=== PATIENT | male | born 1950 | race Caucasian/White ===

== ENCOUNTER 2021-12-08 10:47 | Emergency (ER) | payer OTHER, MEDICAID ==
[~2021-12-08] VITALS: Ht 180.3 cm; Wt 46.8 kg
[2021-12-08] MEDS ORDERED: LIDO1PAD13 TOP (12:30)
[2021-12-08] MEDS ORDERED: PANT40TA29 PO (12:30)
[2021-12-08] MEDS ORDERED: MAGN400T2 PO (12:30)
[2021-12-08] MEDS ORDERED: TRAZ-257 PO (12:30)
[2021-12-08] MEDS ORDERED: ALBU2TA PO (12:30)
[2021-12-08] MEDS ORDERED: RANO500T7 PO (12:30)
[2021-12-08] MEDS ORDERED: AMLO1TAB25 PO (12:30)
[2021-12-08] MEDS ORDERED: ATOR40TA75 PO (12:30)
[2021-12-08 12:33] VITALS: BP 171/107
== END 2021-12-08 12:35 | disposition home or self-care (01) ==
LOC: EDBD 10:47 → M ED 10:47
DX: T18.5XXA Foreign body in anus and rectum, initial encounter (principal); J44.9 Chronic obstructive pulmonary disease, unspecified; Z87.891 Personal history of nicotine dependence; Z79.899 Other long term (current) drug therapy

== ENCOUNTER 2022-02-13 16:39 | Inpatient (IN) | payer OTHER, MEDICAID ==
[~2022-02-13] VITALS: Ht 177.8 cm; Wt 43.2 kg
[~2022-02-13 16:39] MED LIST: ALBU2TA PO; AMLO1TAB25 PO; ATOR40TA75 PO; LIDO1PAD13 TOP; MAGN400T2 PO; PANT40TA29 PO; RANO500T7 PO; TRAZ-257 PO
[2022-02-13 19:44] LABS: BASO % 0.2 % (0.0-1.0); EOS % 0.3 % (0.0-3.0); HEMATOCRIT 40.6 % (42.0-52.0); HEMOGLOBIN 13.6 g/dl (13.5-17.5); LYMPH # 0.9 10^3/uL (1.5-5.0); LYMPH % 13.9 % (24.0-44.0); MEAN CORPUSCULAR HGB CONC 33.5 g/dl (32.0-36.5); MEAN CORPUSCULAR VOLUME 83.5 fl (80.0-96.0); MONO # 0.8 10^3/uL (0.0-0.8); MONO % 13.1 % (2.0-8.0); NEUTROPHILS # 4.6 10^3/uL (1.5-8.5); NEUTROPHILS % 72.2 % (36.0-66.0); PLATELET COUNT, AUTOMATED 226 10^3/uL (150-450); RED BLOOD COUNT 4.86 10^6/uL (4.30-6.10); WHITE BLOOD COUNT 6.3 10^3/uL (4.0-10.0)
[2022-02-13 20:04] LABS: AMPHETAMINES LEVEL URINE NEGATIVE (NEGATIVE); BARBITURATES URINE NEGATIVE (NEGATIVE); BENZODIAZEPINES URINE NEGATIVE (NEGATIVE); CANNABINOIDS URINE NEGATIVE (NEGATIVE); COCAINE METABOLITE URINE NEGATIVE (NEGATIVE); METHADONE URINE NEGATIVE (NEGATIVE); OPIATES URINE NEGATIVE (NEGATIVE); PHENCYCLIDINE URINE NEGATIVE (NEGATIVE)
[2022-02-13 20:15] LABS: MB/CK RELATIVE INDEX 1.49 (< OR =4)
[2022-02-13 20:16] LABS: ALBUMIN 3.4 GM/DL (3.2-5.2); BILIRUBIN,DIRECT 0.2 MG/DL (0.0-0.2); BILIRUBIN,TOTAL 0.7 MG/DL (0.2-1.0); CALCIUM LEVEL 9.1 MG/DL (8.8-10.2); CREATININE FOR GFR 1.5 MG/DL (0.70-1.30); GLOMERULAR FILTRATION RATE 49.1 (>42); POTASSIUM SERUM 3.9 MEQ/L (3.5-5.1); THYROID STIMULATING HORMONE 1.54 uIU/ML (0.358-3.740)
[2022-02-13] MEDS ORDERED: NS 500 ML IV ONE (21:40)
[2022-02-13] MEDS ORDERED: cefTRIAXone SOD 1 GM in D5W MINI-BAG PLUS 50 ML IV ONE (21:40)
[2022-02-13] MEDS ORDERED: hydrALAZINE 20MG/ML 1ML VIAL (J0360 PER 20MG) IV STA (22:16)
[2022-02-13 22:22] LABS: RSV AMPLIFICATION NEGATIVE (NEGATIVE)
[2022-02-13] MEDS ORDERED: NS 1,000 ML IV SCH (23:10)
[2022-02-13] MEDS ORDERED: LEVALBUTEROL 1.25 MG/0.5 ML CONCENTRATE NEB NEB PRN (23:15)
[2022-02-13] MEDS ORDERED: PROAAER10 INH (23:33)
[2022-02-13] MEDS ORDERED: COMMENTS (23:33)
[2022-02-13] MEDS ORDERED: HOME MED LIST COMPLETE! XX SCH (23:35)
[2022-02-14] MEDS ORDERED: ALBUTEROL 90 MCG/ACT 8GM HFA INHALER INH PRN (00:55)
[2022-02-14 01:10] VITALS: BP 169/109
[2022-02-14] MEDS: traZODone 100 MG TAB PO SCH ×2 (02:50→21:55)
[2022-02-14] MEDS: RANOLAZINE 500 MG ER TAB PO SCH ×3 (02:52→21:55)
[2022-02-14 05:16] VITALS: BP 135/84
[2022-02-14 05:56] LABS: HEMATOCRIT 37.1 % (42.0-52.0); HEMOGLOBIN 12.5 g/dl (13.5-17.5); MEAN CORPUSCULAR HEMOGLOBIN 27.7 pg (27.0-33.0); MEAN CORPUSCULAR HGB CONC 33.7 g/dl (32.0-36.5); MEAN CORPUSCULAR VOLUME 82.3 fl (80.0-96.0); PLATELET COUNT, AUTOMATED 206 10^3/uL (150-450); RED BLOOD COUNT 4.51 10^6/uL (4.30-6.10); WHITE BLOOD COUNT 6.4 10^3/uL (4.0-10.0)
[2022-02-14 06:23] LABS: CHOLESTEROL RISK RATIO 2.416 (<5); PROTHROMBIN TIME 13.6 SECONDS (12.7-14.5)
[2022-02-14 06:24] LABS: PARTIAL THROMBOPLASTIN TIME 30.9 SECONDS (25.9-37.0)
[2022-02-14 06:30] LABS: BLOOD UREA NITROGEN 53 MG/DL (7-18); CALCIUM LEVEL 8.4 MG/DL (8.8-10.2); CARBON DIOXIDE LEVEL 24 MEQ/L (21-32); CHLORIDE LEVEL 107 MEQ/L (98-107); CREATININE FOR GFR 1.05 MG/DL (0.70-1.30); GLOMERULAR FILTRATION RATE > 60.0 (>42); GLUCOSE, FASTING 122 MG/DL (70-100); MAGNESIUM LEVEL 2.5 MG/DL (1.8-2.4); POTASSIUM SERUM 3.1 MEQ/L (3.5-5.1); SODIUM LEVEL 140 MEQ/L (136-145)
[2022-02-14] MEDS ORDERED: POTASSIUM CHLORIDE 10MEQ SR TABLET PO ONE (08:00)
[2022-02-14] MEDS: ASPIRIN 81 MG CHEW TABLET PO SCH (08:30)
[2022-02-14] MEDS: PANTOPRAZOLE 40MG TAB (PROTONIX) PO SCH (08:31)
[2022-02-14] MEDS: LACTOBACILLUS ACIDOPHILUS CAP (BACID) PO SCH (08:33)
[2022-02-14] MEDS: ENOXAPARIN 30MG/0.3ML SYRINGE (J1650 PER 10MG) SC SCH (08:35)
[2022-02-14] MEDS ORDERED: RANOLAZINE 500 MG ER TAB PO SCH (09:00)
[2022-02-14 14:00] VITALS: BP 126/84
[2022-02-14 20:40] VITALS: BP 131/85
[2022-02-14] MEDS ORDERED: traZODone 100 MG TAB PO SCH (21:00)
[2022-02-14] MEDS: ATORVASTATIN 20 MG TAB PO SCH (21:55)
[2022-02-14] MEDS: cefTRIAXone SOD 1 GM in D5W MINI-BAG PLUS 50 ML IV SCH (21:56)
[2022-02-15 04:00] VITALS: BP 148/103
[2022-02-15 06:27] VITALS: BP 139/94
[2022-02-15 06:55] LABS: HEMATOCRIT 35.6 % (42.0-52.0); MEAN CORPUSCULAR HEMOGLOBIN 28.7 pg (27.0-33.0); MEAN CORPUSCULAR HGB CONC 33.7 g/dl (32.0-36.5); MEAN CORPUSCULAR VOLUME 85.2 fl (80.0-96.0); PLATELET COUNT, AUTOMATED 222 10^3/uL (150-450); RED BLOOD COUNT 4.18 10^6/uL (4.30-6.10); WHITE BLOOD COUNT 5.1 10^3/uL (4.0-10.0)
[2022-02-15 07:22] LABS: ALBUMIN 2.7 GM/DL (3.2-5.2); ALT/SGPT 11 U/L (12-78); BILIRUBIN,TOTAL 0.4 MG/DL (0.2-1.0); BLOOD UREA NITROGEN 46 MG/DL (7-18); CALCIUM LEVEL 8.6 MG/DL (8.8-10.2); CARBON DIOXIDE LEVEL 29 MEQ/L (21-32); CHLORIDE LEVEL 106 MEQ/L (98-107); CREATININE FOR GFR 1.18 MG/DL (0.70-1.30); GLOMERULAR FILTRATION RATE > 60.0 (>42); GLUCOSE, FASTING 106 MG/DL (70-100); POTASSIUM SERUM 4.1 MEQ/L (3.5-5.1); SODIUM LEVEL 138 MEQ/L (136-145); TOTAL PROTEIN 5.9 GM/DL (6.4-8.2)
[2022-02-15] MEDS: LACTOBACILLUS ACIDOPHILUS CAP (BACID) PO SCH (08:45)
[2022-02-15] MEDS: RANOLAZINE 500 MG ER TAB PO SCH ×2 (08:45→20:55)
[2022-02-15] MEDS: PANTOPRAZOLE 40MG TAB (PROTONIX) PO SCH (08:46)
[2022-02-15] MEDS: ASPIRIN 81 MG CHEW TABLET PO SCH (08:46)
[2022-02-15] MEDS: ENOXAPARIN 30MG/0.3ML SYRINGE (J1650 PER 10MG) SC SCH (08:51)
[2022-02-15 14:00] VITALS: BP 137/86
[2022-02-15 19:37] VITALS: BP 141/92
[2022-02-15] MEDS: ATORVASTATIN 20 MG TAB PO SCH (20:55)
[2022-02-15] MEDS: cefTRIAXone SOD 1 GM in D5W MINI-BAG PLUS 50 ML IV SCH (20:58)
[2022-02-15] MEDS: traZODone 100 MG TAB PO SCH (22:22)
[2022-02-16 06:00] VITALS: BP 113/73
[2022-02-16 07:19] LABS: ALBUMIN 2.2 GM/DL (3.2-5.2); ALT/SGPT 9 U/L (12-78); BILIRUBIN,TOTAL 0.3 MG/DL (0.2-1.0); BLOOD UREA NITROGEN 42 MG/DL (7-18); CALCIUM LEVEL 8.2 MG/DL (8.8-10.2); CARBON DIOXIDE LEVEL 19 MEQ/L (21-32); CHLORIDE LEVEL 109 MEQ/L (98-107); GLOMERULAR FILTRATION RATE > 60.0 (>42); GLUCOSE, FASTING 82 MG/DL (70-100); POTASSIUM SERUM 4.1 MEQ/L (3.5-5.1); SODIUM LEVEL 136 MEQ/L (136-145); TOTAL PROTEIN 5.6 GM/DL (6.4-8.2)
[2022-02-16 07:19] LABS: HEMATOCRIT 35.2 % (42.0-52.0); HEMOGLOBIN 11.7 g/dl (13.5-17.5); MEAN CORPUSCULAR HEMOGLOBIN 28.6 pg (27.0-33.0); MEAN CORPUSCULAR HGB CONC 33.2 g/dl (32.0-36.5); MEAN CORPUSCULAR VOLUME 86.1 fl (80.0-96.0); PLATELET COUNT, AUTOMATED 226 10^3/uL (150-450); RED BLOOD COUNT 4.09 10^6/uL (4.30-6.10); WHITE BLOOD COUNT 6.1 10^3/uL (4.0-10.0)
[2022-02-16] MEDS: LACTOBACILLUS ACIDOPHILUS CAP (BACID) PO SCH (09:31)
[2022-02-16] MEDS: RANOLAZINE 500 MG ER TAB PO SCH ×2 (09:31→20:59)
[2022-02-16] MEDS: ASPIRIN 81 MG CHEW TABLET PO SCH (09:31)
[2022-02-16] MEDS: PANTOPRAZOLE 40MG TAB (PROTONIX) PO SCH (09:31)
[2022-02-16] MEDS: ENOXAPARIN 30MG/0.3ML SYRINGE (J1650 PER 10MG) SC SCH (09:32)
[2022-02-16 14:00] VITALS: BP 116/75
[2022-02-16 20:29] VITALS: BP 166/76
[2022-02-16] MEDS: traZODone 100 MG TAB PO SCH (20:59)
[2022-02-16] MEDS: ATORVASTATIN 20 MG TAB PO SCH (20:59)
[2022-02-17] MEDS: RAMELTEON 8 MG TAB (ROZEREM) PO PRN ×2 (01:08→20:18)
[2022-02-17 06:34] VITALS: BP 159/84
[2022-02-17 06:34] LABS: HEMATOCRIT 36.3 % (42.0-52.0); HEMOGLOBIN 11.8 g/dl (13.5-17.5); MEAN CORPUSCULAR HEMOGLOBIN 27.4 pg (27.0-33.0); MEAN CORPUSCULAR HGB CONC 32.5 g/dl (32.0-36.5); MEAN CORPUSCULAR VOLUME 84.4 fl (80.0-96.0); PLATELET COUNT, AUTOMATED 260 10^3/uL (150-450); WHITE BLOOD COUNT 5.2 10^3/uL (4.0-10.0)
[2022-02-17 07:18] LABS: ALBUMIN 2.5 GM/DL (3.2-5.2); ALT/SGPT 14 U/L (12-78); BILIRUBIN,TOTAL 0.2 MG/DL (0.2-1.0); BLOOD UREA NITROGEN 37 MG/DL (7-18); CALCIUM LEVEL 8.4 MG/DL (8.8-10.2); CARBON DIOXIDE LEVEL 29 MEQ/L (21-32); CHLORIDE LEVEL 103 MEQ/L (98-107); CREATININE FOR GFR 0.91 MG/DL (0.70-1.30); GLOMERULAR FILTRATION RATE > 60.0 (>42); GLUCOSE, FASTING 88 MG/DL (70-100); POTASSIUM SERUM 4.7 MEQ/L (3.5-5.1); SODIUM LEVEL 134 MEQ/L (136-145); TOTAL PROTEIN 5.3 GM/DL (6.4-8.2)
[2022-02-17] MEDS: PANTOPRAZOLE 40MG TAB (PROTONIX) PO SCH (08:08)
[2022-02-17] MEDS: LACTOBACILLUS ACIDOPHILUS CAP (BACID) PO SCH (08:08)
[2022-02-17] MEDS: RANOLAZINE 500 MG ER TAB PO SCH ×2 (08:08→20:18)
[2022-02-17] MEDS: ENOXAPARIN 30MG/0.3ML SYRINGE (J1650 PER 10MG) SC SCH (08:08)
[2022-02-17] MEDS: ASPIRIN 81 MG CHEW TABLET PO SCH (08:08)
[2022-02-17 14:00] VITALS: BP 110/67
[2022-02-17 19:46] VITALS: BP 134/79
[2022-02-17] MEDS: traZODone 100 MG TAB PO SCH (20:18)
[2022-02-17] MEDS: ATORVASTATIN 20 MG TAB PO SCH (20:18)
[2022-02-18 06:43] VITALS: BP 105/68
[2022-02-18] MEDS: ASPIRIN 81 MG CHEW TABLET PO SCH (08:41)
[2022-02-18] MEDS: LACTOBACILLUS ACIDOPHILUS CAP (BACID) PO SCH (08:41)
[2022-02-18] MEDS: RANOLAZINE 500 MG ER TAB PO SCH ×2 (08:41→22:29)
[2022-02-18] MEDS: ENOXAPARIN 30MG/0.3ML SYRINGE (J1650 PER 10MG) SC SCH (08:41)
[2022-02-18] MEDS: PANTOPRAZOLE 40MG TAB (PROTONIX) PO SCH (08:42)
[2022-02-18] MEDS: ATORVASTATIN 20 MG TAB PO SCH (22:30)
[2022-02-18] MEDS: traZODone 100 MG TAB PO SCH (22:30)
[2022-02-19 06:00] VITALS: BP 110/64
[2022-02-19] MEDS: ASPIRIN 81 MG CHEW TABLET PO SCH (09:23)
[2022-02-19] MEDS: LACTOBACILLUS ACIDOPHILUS CAP (BACID) PO SCH (09:23)
[2022-02-19] MEDS: ENOXAPARIN 30MG/0.3ML SYRINGE (J1650 PER 10MG) SC SCH (09:23)
[2022-02-19] MEDS: PANTOPRAZOLE 40MG TAB (PROTONIX) PO SCH (09:23)
[2022-02-19] MEDS: RANOLAZINE 500 MG ER TAB PO SCH ×2 (09:23→20:02)
[2022-02-19] MEDS: ATORVASTATIN 20 MG TAB PO SCH (20:02)
[2022-02-19] MEDS: traZODone 100 MG TAB PO SCH (20:02)
[2022-02-19] MEDS: RAMELTEON 8 MG TAB (ROZEREM) PO PRN (20:02)
[2022-02-19] MEDS: ACETAMINOPHEN TAB 650MG DOSE (2X325MG) PO PRN (20:03)
[2022-02-20 06:00] VITALS: BP 105/56
[2022-02-20] MEDS: ENOXAPARIN 30MG/0.3ML SYRINGE (J1650 PER 10MG) SC SCH (08:44)
[2022-02-20] MEDS: LACTOBACILLUS ACIDOPHILUS CAP (BACID) PO SCH (08:45)
[2022-02-20] MEDS: RANOLAZINE 500 MG ER TAB PO SCH ×2 (08:45→20:09)
[2022-02-20] MEDS: PANTOPRAZOLE 40MG TAB (PROTONIX) PO SCH (08:45)
[2022-02-20] MEDS: ASPIRIN 81 MG CHEW TABLET PO SCH (08:45)
[2022-02-20 08:46] LABS: HEMATOCRIT 33.7 % (42.0-52.0); HEMOGLOBIN 11.1 g/dl (13.5-17.5); MEAN CORPUSCULAR HEMOGLOBIN 28.2 pg (27.0-33.0); MEAN CORPUSCULAR HGB CONC 32.9 g/dl (32.0-36.5); MEAN CORPUSCULAR VOLUME 85.5 fl (80.0-96.0); PLATELET COUNT, AUTOMATED 325 10^3/uL (150-450); RED BLOOD COUNT 3.94 10^6/uL (4.30-6.10)
[2022-02-20 09:13] LABS: ALBUMIN 2.5 GM/DL (3.2-5.2); ALT/SGPT 14 U/L (12-78); BILIRUBIN,TOTAL 0.2 MG/DL (0.2-1.0); BLOOD UREA NITROGEN 27 MG/DL (7-18); CALCIUM LEVEL 8.6 MG/DL (8.8-10.2); CARBON DIOXIDE LEVEL 26 MEQ/L (21-32); CHLORIDE LEVEL 101 MEQ/L (98-107); CREATININE FOR GFR 1.08 MG/DL (0.70-1.30); GLOMERULAR FILTRATION RATE > 60.0 (>42); GLUCOSE, FASTING 132 MG/DL (70-100); POTASSIUM SERUM 4.5 MEQ/L (3.5-5.1); SODIUM LEVEL 134 MEQ/L (136-145); TOTAL PROTEIN 5.2 GM/DL (6.4-8.2)
[2022-02-20] MEDS: traZODone 100 MG TAB PO SCH (20:09)
[2022-02-20] MEDS: ATORVASTATIN 20 MG TAB PO SCH (20:10)
[2022-02-20] MEDS: RAMELTEON 8 MG TAB (ROZEREM) PO PRN (20:10)
[2022-02-20] MEDS: ACETAMINOPHEN TAB 650MG DOSE (2X325MG) PO PRN (20:11)
[2022-02-20] MEDS: CALCIUM CARBONATE 500 MG CHEW U/D PO PRN (23:34)
[2022-02-21 03:03] VITALS: BP 129/85
[2022-02-21 07:18] LABS: HEMATOCRIT 35.8 % (42.0-52.0); HEMOGLOBIN 11.9 g/dl (13.5-17.5); MEAN CORPUSCULAR HGB CONC 33.2 g/dl (32.0-36.5); MEAN CORPUSCULAR VOLUME 84.2 fl (80.0-96.0); PLATELET COUNT, AUTOMATED 351 10^3/uL (150-450); RED BLOOD COUNT 4.25 10^6/uL (4.30-6.10); WHITE BLOOD COUNT 5.7 10^3/uL (4.0-10.0)
[2022-02-21 07:48] LABS: BLOOD UREA NITROGEN 27 MG/DL (7-18); CHLORIDE LEVEL 102 MEQ/L (98-107); GLOMERULAR FILTRATION RATE > 60.0 (>42); GLUCOSE, FASTING 88 MG/DL (70-100); POTASSIUM SERUM 4.6 MEQ/L (3.5-5.1); SODIUM LEVEL 136 MEQ/L (136-145)
[2022-02-21 07:49] LABS: CALCIUM LEVEL 8.9 MG/DL (8.8-10.2); CARBON DIOXIDE LEVEL 28 mmol/L (20-29)
[2022-02-21] MEDS: ENOXAPARIN 30MG/0.3ML SYRINGE (J1650 PER 10MG) SC SCH (08:57)
[2022-02-21] MEDS: RANOLAZINE 500 MG ER TAB PO SCH ×2 (08:58→19:40)
[2022-02-21] MEDS: LACTOBACILLUS ACIDOPHILUS CAP (BACID) PO SCH (08:58)
[2022-02-21] MEDS: ASPIRIN 81 MG CHEW TABLET PO SCH (08:58)
[2022-02-21] MEDS: PANTOPRAZOLE 40MG TAB (PROTONIX) PO SCH (09:01)
[2022-02-21] MEDS: traZODone 100 MG TAB PO SCH (19:40)
[2022-02-21] MEDS: RAMELTEON 8 MG TAB (ROZEREM) PO PRN (19:40)
[2022-02-21] MEDS: ATORVASTATIN 20 MG TAB PO SCH (19:40)
[2022-02-21] MEDS: ACETAMINOPHEN TAB 650MG DOSE (2X325MG) PO PRN (19:40)
[2022-02-22 06:00] VITALS: BP 142/83
[2022-02-22] MEDS: PANTOPRAZOLE 40MG TAB (PROTONIX) PO SCH (08:52)
[2022-02-22] MEDS: ENOXAPARIN 30MG/0.3ML SYRINGE (J1650 PER 10MG) SC SCH (08:52)
[2022-02-22] MEDS: RANOLAZINE 500 MG ER TAB PO SCH ×2 (08:52→20:30)
[2022-02-22] MEDS: ASPIRIN 81 MG CHEW TABLET PO SCH (08:53)
[2022-02-22] MEDS: LACTOBACILLUS ACIDOPHILUS CAP (BACID) PO SCH (08:53)
[2022-02-22] MEDS: traZODone 100 MG TAB PO SCH (20:30)
[2022-02-22] MEDS: ATORVASTATIN 20 MG TAB PO SCH (20:30)
[2022-02-22] MEDS: ACETAMINOPHEN TAB 650MG DOSE (2X325MG) PO PRN (20:31)
[2022-02-23 06:00] VITALS: BP 142/88
[2022-02-23] MEDS: PANTOPRAZOLE 40MG TAB (PROTONIX) PO SCH (08:14)
[2022-02-23] MEDS: ENOXAPARIN 30MG/0.3ML SYRINGE (J1650 PER 10MG) SC SCH (08:14)
[2022-02-23] MEDS: RANOLAZINE 500 MG ER TAB PO SCH ×2 (08:15→20:46)
[2022-02-23] MEDS: LACTOBACILLUS ACIDOPHILUS CAP (BACID) PO SCH (08:15)
[2022-02-23] MEDS: ASPIRIN 81 MG CHEW TABLET PO SCH (08:15)
[2022-02-23] MEDS: ATORVASTATIN 20 MG TAB PO SCH (20:45)
[2022-02-23] MEDS: traZODone 100 MG TAB PO SCH (20:45)
[2022-02-24 05:55] LABS: HEMATOCRIT 33.2 % (42.0-52.0); HEMOGLOBIN 10.9 g/dl (13.5-17.5); MEAN CORPUSCULAR HEMOGLOBIN 28.4 pg (27.0-33.0); MEAN CORPUSCULAR HGB CONC 32.8 g/dl (32.0-36.5); MEAN CORPUSCULAR VOLUME 86.5 fl (80.0-96.0); PLATELET COUNT, AUTOMATED 343 10^3/uL (150-450); RED BLOOD COUNT 3.84 10^6/uL (4.30-6.10); WHITE BLOOD COUNT 7.1 10^3/uL (4.0-10.0)
[2022-02-24 06:27] VITALS: BP 133/98
[2022-02-24 06:34] LABS: BLOOD UREA NITROGEN 30 MG/DL (7-18); CARBON DIOXIDE LEVEL 29 MEQ/L (21-32); CHLORIDE LEVEL 103 MEQ/L (98-107); CREATININE FOR GFR 1.08 MG/DL (0.70-1.30); GLOMERULAR FILTRATION RATE > 60.0 (>42); GLUCOSE, FASTING 100 MG/DL (70-100); POTASSIUM SERUM 4.7 MEQ/L (3.5-5.1); SODIUM LEVEL 138 MEQ/L (136-145)
[2022-02-24] MEDS ORDERED: ASPI81CH8 PO (07:04)
[2022-02-24] MEDS ORDERED: RISATAB3 PO (07:05)
[2022-02-24] MEDS: CALCIUM CARBONATE 500 MG CHEW U/D PO PRN (08:40)
[2022-02-24] MEDS: ENOXAPARIN 30MG/0.3ML SYRINGE (J1650 PER 10MG) SC SCH (09:47)
[2022-02-24] MEDS: LACTOBACILLUS ACIDOPHILUS CAP (BACID) PO SCH (09:48)
[2022-02-24] MEDS: ASPIRIN 81 MG CHEW TABLET PO SCH (09:48)
[2022-02-24] MEDS: RANOLAZINE 500 MG ER TAB PO SCH (09:49)
[2022-02-24] MEDS: PANTOPRAZOLE 40MG TAB (PROTONIX) PO SCH (09:49)
[2022-02-24 09:51] VITALS: BP 139/89
== END 2022-02-24 12:20 | DRG 70 ==
LOC: M ED 16:39 → M ED INP 23:07 → M MS5PR 02-14 01:21
PROVIDERS: ADMIT Internal Medicine; ATTEND Internal Medicine
DX: G93.41 Metabolic encephalopathy (principal); E43 Unspecified severe protein-calorie malnutrition; R64 Cachexia; N39.0 Urinary tract infection, site not specified; N17.9 Acute kidney failure, unspecified; Z68.1 Body mass index [BMI] 19.9 or less, adult; I10 Essential (primary) hypertension; E78.5 Hyperlipidemia, unspecified; I25.10 Atherosclerotic heart disease of native coronary artery without angina pectoris; J44.9 Chronic obstructive pulmonary disease, unspecified; M19.90 Unspecified osteoarthritis, unspecified site; K21.9 Gastro-esophageal reflux disease without esophagitis; Z95.5 Presence of coronary angioplasty implant and graft; Z79.899 Other long term (current) drug therapy; Z87.891 Personal history of nicotine dependence; E86.0 Dehydration; E87.6 Hypokalemia; F32.89 Other specified depressive episodes; B96.20 Unspecified Escherichia coli [E. coli] as the cause of diseases classified elsewhere; R41.89 Other symptoms and signs involving cognitive functions and awareness; F03.90 Unspecified dementia, unspecified severity, without behavioral disturbance, psychotic disturbance, mood disturbance, and anxiety

== ENCOUNTER 2022-06-08 08:16 | Inpatient (IN) | payer OTHER, MEDICAID ==
[~2022-06-08] VITALS: Ht 177.8 cm; Wt 45.3 kg
[~2022-06-08 08:16] MED LIST changes: +ASPI81CH8 PO; +COMMENTS; +PROAAER10 INH; +RISATAB3 PO
[2022-06-08 10:01] LABS: HEMATOCRIT 32.6 % (42.0-52.0); HEMOGLOBIN 10.9 g/dl (13.5-17.5); MEAN CORPUSCULAR HEMOGLOBIN 28.5 pg (27.0-33.0); MEAN CORPUSCULAR HGB CONC 33.4 g/dl (32.0-36.5); MEAN CORPUSCULAR VOLUME 85.1 fl (80.0-96.0); PLATELET COUNT, AUTOMATED 284 10^3/uL (150-450); RED BLOOD COUNT 3.83 10^6/uL (4.30-6.10)
[2022-06-08 10:31] LABS: ALBUMIN 2.7 GM/DL (3.2-5.2); BILIRUBIN,DIRECT 0.2 MG/DL (0.0-0.2); BILIRUBIN,TOTAL 0.5 MG/DL (0.2-1.0); CREATININE FOR GFR 1.37 MG/DL (0.70-1.30); GLOMERULAR FILTRATION RATE 54.5 (>42); POTASSIUM SERUM 3.7 MEQ/L (3.5-5.1); TOTAL PROTEIN 6.4 GM/DL (6.4-8.2)
[2022-06-08 10:45] LABS: ATYPICAL LYMPH 1 % (0-5); METAMYELOCYTES 2 % (0-0); MONOCYTES 4 % (0-5); NEUTROPHILS 64 % (28-66)
[2022-06-08 10:46] LABS: ANISOCYTOSIS 1+
[2022-06-08 10:52] LABS: PLATELET ESTIMATE NORMAL (NORMAL)
[2022-06-08] MEDS ORDERED: cefTRIAXone SOD 2 GM in D5W MINI-BAG PLUS 50 ML IV ONE (11:00)
[2022-06-08] MEDS ORDERED: NS IV ONE (11:20)
[2022-06-08 12:17] LABS: APPEARANCE, URINE MANUAL TURBID (CLEAR); COLOR, URINE MANUAL BROWN (YELLOW)
[2022-06-08 12:19] LABS: PH,URINE MAN 7.5 UNITS (5.0 - 7.0); SPECIFIC GRAVITY,URINE MANUAL 1.015 (1.002-1.035)
[2022-06-08 12:20] LABS: BILIRUBIN, URINE MANUAL NEGATIVE (NEGATIVE); BLOOD URINE MANUAL POSITIVE (NEGATIVE); GLUCOSE, URINE (UA) MANUAL NEGATIVE (NEGATIVE); KETONE, URINE MANUAL NEGATIVE (NEGATIVE); LEUKOCYTE ESTERASE, URINE MAN POSITIVE (NEGATIVE); NITRITE, URINE MANUAL NEGATIVE (NEGATIVE); PROTEIN, URINE MANUAL 1+ mg/dL (NEGATIVE); UROBILINOGEN, URINE MANUAL NORMAL (NORMAL)
[2022-06-08 12:22] LABS: C REACTIVE PROTEIN QUANTITATIV 20.7 MG/DL (0.00-0.30)
[2022-06-08 12:50] LABS: RSV AMPLIFICATION NEGATIVE (NEGATIVE)
[2022-06-08 12:53] LABS: WBC, URINE 20-30 /hpf (0-3)
[2022-06-08 12:55] LABS: AMORPHOUS SEDIMENT, URINE MOD AMOUNT (NEGATIVE); BACTERIA, URINE MOD AMOUNT; HYALINE CAST, URINE NONE SEEN /lpf (0-1); SQUAMOUS EPITHELIAL CELL URINE SMALL AMOUNT /hpf (SMALL AMT); TRIPLE PHOSPHATE CRYSTAL,URINE SMALL AMOUNT /hpf
[2022-06-08 13:12] LABS: CK-MB VALUE MASS < 1.0 NG/ML (<3.6); CPK CREATINE PHOSPHOKINASE 92 U/L (39-308); MB/CK RELATIVE INDEX 1.09 (< OR =4)
[2022-06-08] MEDS ORDERED: NS 2,000 ML IV ONE ×2 (13:45→18:40)
[2022-06-08 14:35] LABS: INR 1.02; PROTHROMBIN TIME 13.6 SECONDS (12.5-14.5)
[2022-06-08 14:36] LABS: PARTIAL THROMBOPLASTIN TIME 30.4 SECONDS (24.8-34.2)
[2022-06-08] MEDS ORDERED: ONDANSETRON 4MG 2ML VIAL IV ONE (14:45)
[2022-06-08] MEDS ORDERED: ALBU8.5H INH (15:17)
[2022-06-08] MEDS ORDERED: OMEP40CA5 PO (15:18)
[2022-06-08] MEDS ORDERED: HOME MED LIST COMPLETE! XX SCH (15:20)
[2022-06-08] MEDS ORDERED: ASMA1AER3 INH (15:20)
[2022-06-08] MEDS ORDERED: PROMETHAZINE 25MG/ML 1ML VIAL IV ONE (17:35)
[2022-06-08] MEDS ORDERED: ALBUTEROL 90 MCG/ACT 8GM HFA INHALER INH PRN (17:40)
[2022-06-08 17:52] LABS: BLOOD UREA NITROGEN 25 MG/DL (7-18); CALCIUM LEVEL 8.4 MG/DL (8.8-10.2); CARBON DIOXIDE LEVEL 24 MEQ/L (21-32); CHLORIDE LEVEL 107 MEQ/L (98-107); CREATININE FOR GFR 1.12 MG/DL (0.70-1.30); GLOMERULAR FILTRATION RATE > 60.0 (>42); GLUCOSE, FASTING 114 MG/DL (70-100); POTASSIUM SERUM 3.6 MEQ/L (3.5-5.1); SODIUM LEVEL 138 MEQ/L (136-145)
[2022-06-08 18:00] VITALS: BP 105/77
[2022-06-08] MEDS ORDERED: LACTOBACILLUS ACIDOPHILUS CAP (BACID) PO SCH (18:00)
[2022-06-08 18:40] VITALS: BP 149/123
[2022-06-08] MEDS ORDERED: MIDODRINE 5 MG TAB PO SCH (18:40)
[2022-06-08 18:42] VITALS: BP 124/74
[2022-06-08] MEDS: ONDANSETRON 4MG 2ML VIAL IV PRN (19:34)
[2022-06-08 20:00] VITALS: BP 144/89
[2022-06-08 20:00] LABS: MB/CK RELATIVE INDEX 0.89 (< OR =4)
[2022-06-08] MEDS: GASTROGRAFIN SOLUTION 30ML PO SCH ×2 (20:00→20:49)
[2022-06-08] MEDS ORDERED: traZODone 100 MG TAB PO SCH (21:00)
[2022-06-08] MEDS ORDERED: ATORVASTATIN 20 MG TAB PO SCH (21:00)
[2022-06-08] MEDS: PIPERACILLIN/TAZOBACTAM SOD 3.375 GM in D5W MINI-BAG PLUS 50 ML IV SCH (21:58)
[2022-06-08] MEDS: RANOLAZINE 500MG ER TAB PO SCH (21:58)
[2022-06-08] MEDS ORDERED: VANCOMYCIN HCL 1,000 MG, VIAL MATE ADAPTER 1 EACH in NS 250 ML IV ONE (22:00)
[2022-06-08] MEDS: NS 1,000 ML IV SCH (22:02)
[2022-06-08] MEDS ORDERED: LEVALBUTEROL 1.25MG 0.5ML CONCENTRATE NEB INH PRN (22:20)
[2022-06-08] MEDS: PROMETHAZINE 25MG/ML 1ML VIAL IV PRN (22:43)
[2022-06-09] VITALS (28 sets, daily range): BP systolic 103–153; BP diastolic 61–84; O2SAT 92–100
[2022-06-09] MEDS: PIPERACILLIN/TAZOBACTAM SOD 3.375 GM in D5W MINI-BAG PLUS 50 ML IV SCH ×4 (01:40→19:45)
[2022-06-09] MEDS: NS 1,000 ML IV SCH (04:09)
[2022-06-09] MEDS ORDERED: VANCOMYCIN HCL 750 MG, VIAL MATE ADAPTER 1 EACH in D5W 250 ML IV SCH (06:00)
[2022-06-09 07:49] LABS: BASO % 0.1 % (0.0-1.0); HEMATOCRIT 31.8 % (42.0-52.0); HEMOGLOBIN 10.2 g/dl (13.5-17.5); LYMPH # 0.3 10^3/uL (1.5-5.0); LYMPH % 2.8 % (24.0-44.0); MEAN CORPUSCULAR HEMOGLOBIN 28.7 pg (27.0-33.0); MEAN CORPUSCULAR HGB CONC 32.1 g/dl (32.0-36.5); MEAN CORPUSCULAR VOLUME 89.3 fl (80.0-96.0); MONO # 0.7 10^3/uL (0.0-0.8); MONO % 5.9 % (2.0-8.0); NEUTROPHILS # 10.4 10^3/uL (1.5-8.5); NEUTROPHILS % 90.1 % (36.0-66.0); RED BLOOD COUNT 3.56 10^6/uL (4.30-6.10); WHITE BLOOD COUNT 11.5 10^3/uL (4.0-10.0)
[2022-06-09 08:08] LABS: BLOOD UREA NITROGEN 21 MG/DL (7-18); CALCIUM LEVEL 7.9 MG/DL (8.8-10.2); CARBON DIOXIDE LEVEL 25 MEQ/L (21-32); CHLORIDE LEVEL 110 MEQ/L (98-107); CREATININE FOR GFR 0.73 MG/DL (0.70-1.30); GLOMERULAR FILTRATION RATE > 60.0 (>42); GLUCOSE, FASTING 94 MG/DL (70-100); SODIUM LEVEL 141 MEQ/L (136-145)
[2022-06-09 08:37] LABS: PLATELET COUNT, AUTOMATED 192 10^3/uL (150-450)
[2022-06-09] MEDS ORDERED: ONDANSETRON 4MG 2ML VIAL As Ordered ONE (08:56)
[2022-06-09] MEDS ORDERED: fentaNYL 100 MCG/2 ML INJECTION As Ordered ONE ×2 (08:56→10:21)
[2022-06-09] MEDS ORDERED: LIDOCAINE 2% 100MG/5ML SDV (FOR ANES.) As Ordered ONE (08:56)
[2022-06-09] MEDS ORDERED: MIDAZOLAM INJ 2MG/2ML VIAL (J2250 PER 1MG) As Ordered ONE (08:56)
[2022-06-09] MEDS ORDERED: propofoL 200 MG/20 ML VIAL As Ordered ONE (08:56)
[2022-06-09] MEDS ORDERED: ASPIRIN 81MG CHEW TABLET PO SCH (09:00)
[2022-06-09] MEDS: RANOLAZINE 500MG ER TAB PO SCH ×2 (09:00→19:44)
[2022-06-09] MEDS ORDERED: OMEPRAZOLE 20MG CAP PO SCH (09:00)
[2022-06-09] MEDS ORDERED: ROCURONIUM BROMIDE 50 MG/5 ML VIAL As Ordered ONE (09:00)
[2022-06-09] MEDS ORDERED: ETOMIDATE INJ 20MG/10ML VIAL As Ordered ONE (09:30)
[2022-06-09] MEDS ORDERED: ePHEDrine SULFATE 25 MG/5 ML(5MG/ML) SYRINGE As Ordered ONE (09:58)
[2022-06-09] MEDS ORDERED: PHENYLephrine 500MCG 5ML (100MCG/ML) SYRINGE As Ordered ONE (09:58)
[2022-06-09] MEDS ORDERED: KCL 40MEQ IN D5/0.45NS 1000ML 1,000 ML IV SCH (11:10)
[2022-06-09] MEDS ORDERED: LABETALOL 100MG/20ML VIAL IV PRN (11:30)
[2022-06-09] MEDS ORDERED: cefTRIAXone SOD 1 GM in D5W MINI-BAG PLUS 50 ML IV SCH (12:00)
[2022-06-09] MEDS ORDERED: LABETALOL 100MG/20ML VIAL As Ordered ONE (17:42)
[2022-06-09] MEDS: ONDANSETRON 4MG 2ML VIAL IV PRN (19:45)
[2022-06-10] VITALS (26 sets, daily range): BP systolic 95–136; BP diastolic 59–91; O2SAT 95–99
[2022-06-10] MEDS: PIPERACILLIN/TAZOBACTAM SOD 3.375 GM in D5W MINI-BAG PLUS 50 ML IV SCH ×4 (02:18→19:38)
[2022-06-10] MEDS: ONDANSETRON 4MG 2ML VIAL IV PRN ×2 (02:24→08:57)
[2022-06-10 08:12] LABS: HEMATOCRIT 25.1 % (42.0-52.0); HEMOGLOBIN 8.5 g/dl (13.5-17.5); MEAN CORPUSCULAR HEMOGLOBIN 28.7 pg (27.0-33.0); MEAN CORPUSCULAR HGB CONC 33.9 g/dl (32.0-36.5); MEAN CORPUSCULAR VOLUME 84.8 fl (80.0-96.0); PLATELET COUNT, AUTOMATED 129 10^3/uL (150-450); RED BLOOD COUNT 2.96 10^6/uL (4.30-6.10); WHITE BLOOD COUNT 6.8 10^3/uL (4.0-10.0)
[2022-06-10] MEDS ORDERED: NITROGLYCERIN 0.4MG SUBL TABLET SL PRN (08:20)
[2022-06-10] MEDS ORDERED: MAG SULF 1GM/100ML (MAG RUN) 1 GM in IV 1 EA IV ONE (08:30)
[2022-06-10 08:54] LABS: BLOOD UREA NITROGEN 16 MG/DL (7-18); CALCIUM LEVEL 7.7 MG/DL (8.8-10.2); CARBON DIOXIDE LEVEL 22 MEQ/L (21-32); CHLORIDE LEVEL 109 MEQ/L (98-107); GLOMERULAR FILTRATION RATE > 60.0 (>42); GLUCOSE, FASTING 104 MG/DL (70-100); POTASSIUM SERUM 2.6 MEQ/L (3.5-5.1); SODIUM LEVEL 139 MEQ/L (136-145)
[2022-06-10 08:56] LABS: ATYPICAL LYMPH 1 % (0-5); LYMPHOCYTES 5 % (16-44); MONOCYTES 6 % (0-5); NEUTROPHILS 74 % (28-66)
[2022-06-10 08:58] LABS: PLATELET ESTIMATE DECREASED (NORMAL)
[2022-06-10 09:00] LABS: POIKILOCYTOSIS 1+
[2022-06-10] MEDS ORDERED: CALCIUM GLUCONATE 1,000 MG in D5W MINI-BAG PLUS 100 ML IV ONE ×2 (09:00→19:00)
[2022-06-10] MEDS ORDERED: POTASSIUM CHLORIDE 10% LIQ 20 MEQ/15 ML UDC PO SCH ×2 (09:00→19:00)
[2022-06-10 09:01] LABS: CRENATED RBC 1+; SCHISTOCYTES 1+
[2022-06-10 09:19] LABS: MAGNESIUM LEVEL 1.7 MG/DL (1.8-2.4)
[2022-06-10] MEDS: POTASSIUM CHLORIDE 10% LIQ 20 MEQ/15 ML UDC PO SCH ×4 (09:27→11:01)
[2022-06-10] MEDS ORDERED: ALBUTEROL SULFATE 2.5 MG/0.5 ML INH NEB SOLN INH PRN (10:30)
[2022-06-10] MEDS ORDERED: diphenhydrAMINE 25MG CAP PO ONE (10:30)
[2022-06-10] MEDS ORDERED: diphenhydrAMINE 50MG/ML VIAL IV PRN (10:30)
[2022-06-10] MEDS ORDERED: diphenhydrAMINE 50MG CAP PO ONE (10:30)
[2022-06-10] MEDS ORDERED: EPINEPHrine INJ 1 MG/ML 1ML AMP IM PRN (10:30)
[2022-06-10] MEDS ORDERED: methylPREDNISolone 125MG 2ML VIAL IV PRN (10:30)
[2022-06-10] MEDS ORDERED: ALBUTEROL 90 MCG/ACT 8GM HFA INHALER INH PRN (10:30)
[2022-06-10] MEDS: PROMETHAZINE 25MG/ML 1ML VIAL IV PRN (12:06)
[2022-06-10] MEDS ORDERED: KCL 40MEQ IN D5/0.45NS 1000ML 1,000 ML IV SCH (12:10)
[2022-06-10] MEDS ORDERED: PROMETHAZINE 25MG/ML 1ML VIAL IV PRN (12:10)
[2022-06-10] MEDS: KCL 10MEQ/100ML SWI (KRUN) 10 MEQ in IV 1 EA IV SCH ×4 (12:52→18:12)
[2022-06-10] MEDS ORDERED: NS 1,000 ML IV SCH (13:00)
[2022-06-10] MEDS ORDERED: methylPREDNISolone 125MG 2ML VIAL IV ONE (13:00)
[2022-06-10] MEDS ORDERED: diphenhydrAMINE 50MG/ML VIAL IV ONE (13:00)
[2022-06-10] MEDS ORDERED: ACETAMINOPHEN TAB 650MG DOSE (2X325MG) PO ONE (13:00)
[2022-06-10] MEDS ORDERED: BEBTELOVIMAB 175MG 2ML VIAL (EUA) IV ONE (14:00)
[2022-06-10] MEDS ORDERED: KCL 40MEQ in NS 1000ML 1,000 ML IV SCH (14:10)
[2022-06-10] MEDS ORDERED: DIGOXIN INJ 0.5 MG/2 ML AMP IV STA (14:11)
[2022-06-10 14:18] LABS: POTASSIUM SERUM 2.8 MEQ/L (3.5-5.1)
[2022-06-10] MEDS: diltiaZEM 125 MG in NS 100 ML IV SCH (15:11)
[2022-06-10] MEDS: ENOXAPARIN 60MG/0.6ML SYRINGE (J1650 PER 10MG) SC SCH (16:24)
[2022-06-10 20:47] LABS: MAGNESIUM LEVEL 1.9 MG/DL (1.8-2.4)
[2022-06-10 23:38] LABS: MAGNESIUM LEVEL 1.8 MG/DL (1.8-2.4); POTASSIUM SERUM 4.4 MEQ/L (3.5-5.1)
[2022-06-11] VITALS (16 sets, daily range): BP systolic 104–145; BP diastolic 59–88; O2SAT 96–98
[2022-06-11] MEDS: PIPERACILLIN/TAZOBACTAM SOD 3.375 GM in D5W MINI-BAG PLUS 50 ML IV SCH ×3 (01:48→13:21)
[2022-06-11] MEDS: ENOXAPARIN 60MG/0.6ML SYRINGE (J1650 PER 10MG) SC SCH (05:07)
[2022-06-11] MEDS: ONDANSETRON 4MG 2ML VIAL IV PRN (05:07)
[2022-06-11 06:24] LABS: MEAN CORPUSCULAR HEMOGLOBIN 27.9 pg (27.0-33.0); MEAN CORPUSCULAR HGB CONC 32.3 g/dl (32.0-36.5); MEAN CORPUSCULAR VOLUME 86.3 fl (80.0-96.0); PLATELET COUNT, AUTOMATED 122 10^3/uL (150-450); RED BLOOD COUNT 2.33 10^6/uL (4.30-6.10); WHITE BLOOD COUNT 8.4 10^3/uL (4.0-10.0)
[2022-06-11 06:27] LABS: HEMATOCRIT 20.1 % (42.0-52.0)
[2022-06-11 06:28] LABS: HEMOGLOBIN 6.5 g/dl (13.5-17.5)
[2022-06-11 07:10] LABS: LYMPHOCYTES 3 % (16-44); MONOCYTES 4 % (0-5); NEUTROPHILS 82 % (28-66)
[2022-06-11 07:13] LABS: CRENATED RBC 1+; POIKILOCYTOSIS 1+
[2022-06-11 07:15] LABS: SCHISTOCYTES 1+
[2022-06-11 07:17] LABS: PLATELET ESTIMATE DECREASED (NORMAL)
[2022-06-11 07:24] LABS: BLOOD UREA NITROGEN 26 MG/DL (7-18); CALCIUM LEVEL 8.2 MG/DL (8.8-10.2); CARBON DIOXIDE LEVEL 22 MEQ/L (21-32); CHLORIDE LEVEL 109 MEQ/L (98-107); CREATININE FOR GFR 0.92 MG/DL (0.70-1.30); DIGOXIN LEVEL 0.3 NG/ML (0.5-2.0); GLOMERULAR FILTRATION RATE > 60.0 (>42); GLUCOSE, FASTING 122 MG/DL (70-100); POTASSIUM SERUM 3.5 MEQ/L (3.5-5.1); SODIUM LEVEL 138 MEQ/L (136-145)
[2022-06-11 07:51] LABS: HEMATOCRIT 18.6 % (42.0-52.0)
[2022-06-11 09:16] LABS: INR 1.16
[2022-06-11 09:17] LABS: PARTIAL THROMBOPLASTIN TIME 35.8 SECONDS (24.8-34.2)
[2022-06-11] MEDS ORDERED: PANTOPRAZOLE 40MG VIAL IV SCH (12:00)
[2022-06-11] MEDS: diltiaZEM 125 MG in NS 100 ML IV SCH (13:42)
[2022-06-11] MEDS ORDERED: MORPHINE 10MG/0.5ML ORAL CONCENTRATE SOLUTION U/D SL PRN (15:15)
[2022-06-11] MEDS ORDERED: LORazepam 2 MG/ML VIAL IV PRN (15:15)
[2022-06-11] MEDS ORDERED: SCOPOLAMINE 1MG TRANSDERMAL PATCH TOP PRN (15:15)
[2022-06-11] MEDS ORDERED: ATROPINE SULFATE 1% OP SOLN 2 ML BTL SL PRN (15:15)
[2022-06-11] MEDS ORDERED: HYOSCYAMINE SULFATE 0.125 MG SUBL TABLET PO PRN (15:15)
[2022-06-11] MEDS ORDERED: SUCRALFATE SUSP 1GM/10ML UD PO ONE (16:15)
[2022-06-11 17:17] LABS: HEMATOCRIT 25.8 % (42.0-52.0)
[2022-06-11 17:19] LABS: HEMOGLOBIN 8.8 g/dl (13.5-17.5)
[2022-06-11 18:00] LABS: CK-MB VALUE MASS 1.5 NG/ML (<3.6); MB/CK RELATIVE INDEX 1.44 (< OR =4)
[2022-06-11] MEDS ORDERED: PANTOPRAZOLE 40MG TAB (PROTONIX) PO ONE (18:00)
[2022-06-11] MEDS ORDERED: MIDODRINE 5 MG TAB PO ONE (18:00)
[2022-06-11] MEDS ORDERED: atenoloL 25 MG TAB PO ONE (18:00)
[2022-06-11] MEDS ORDERED: MEGESTROL 400MG 10ML SUSP ORAL SYRINGE *DRAW UP EXACT DOSE PO ONE (19:00)
[2022-06-11] MEDS: SUCRALFATE SUSP 1GM/10ML UD PO SCH (21:05)
[2022-06-11] MEDS: cefTRIAXone SOD 1 GM in D5W MINI-BAG PLUS 50 ML IV SCH (21:05)
[2022-06-12 04:13] VITALS: BP 146/86
[2022-06-12] MEDS: SUCRALFATE SUSP 1GM/10ML UD PO SCH ×4 (04:13→21:14)
[2022-06-12 05:32] LABS: BLOOD UREA NITROGEN 24 MG/DL (7-18); CALCIUM LEVEL 7.8 MG/DL (8.8-10.2); CARBON DIOXIDE LEVEL 23 MEQ/L (21-32); CHLORIDE LEVEL 108 MEQ/L (98-107); CREATININE FOR GFR 0.71 MG/DL (0.70-1.30); GLOMERULAR FILTRATION RATE > 60.0 (>42); GLUCOSE, FASTING 118 MG/DL (70-100); POTASSIUM SERUM 3.3 MEQ/L (3.5-5.1); SODIUM LEVEL 137 MEQ/L (136-145)
[2022-06-12 07:20] VITALS: BP 122/80
[2022-06-12 08:13] LABS: CLOSTRIDIUM DIFFICILE PCR NEGATIVE (NEGATIVE)
[2022-06-12] MEDS: PANTOPRAZOLE 40MG VIAL IV SCH ×2 (09:34→21:14)
[2022-06-12 11:25] VITALS: BP 141/83
[2022-06-12 12:00] LABS: HEMATOCRIT 31.1 % (42.0-52.0); HEMOGLOBIN 10.5 g/dl (13.5-17.5)
[2022-06-12] MEDS ORDERED: POTASSIUM CHLORIDE 10% LIQ 20 MEQ/15 ML UDC PO ONE (13:00)
[2022-06-12] MEDS: ONDANSETRON 4MG 2ML VIAL IV PRN (13:54)
[2022-06-12 15:44] VITALS: BP 135/95
[2022-06-12 18:23] LABS: HEMATOCRIT 29.5 % (42.0-52.0); HEMOGLOBIN 10.3 g/dl (13.5-17.5)
[2022-06-12] MEDS: cefTRIAXone SOD 1 GM in D5W MINI-BAG PLUS 50 ML IV SCH (19:48)
[2022-06-12 20:02] VITALS: BP 124/83
[2022-06-12] MEDS ORDERED: RANOLAZINE 500MG ER TAB PO SCH (21:00)
[2022-06-13 00:29] LABS: HEMATOCRIT 29.2 % (42.0-52.0); HEMOGLOBIN 10.4 g/dl (13.5-17.5)
[2022-06-13 04:00] VITALS: BP 137/97
[2022-06-13] MEDS: SUCRALFATE SUSP 1GM/10ML UD PO SCH ×4 (04:57→21:30)
[2022-06-13 05:09] LABS: HEMATOCRIT 30.1 % (42.0-52.0); HEMOGLOBIN 10.5 g/dl (13.5-17.5)
[2022-06-13 05:46] LABS: BLOOD UREA NITROGEN 16 MG/DL (7-18); CALCIUM LEVEL 7.8 MG/DL (8.8-10.2); CARBON DIOXIDE LEVEL 24 MEQ/L (21-32); CHLORIDE LEVEL 106 MEQ/L (98-107); CREATININE FOR GFR 0.56 MG/DL (0.70-1.30); GLOMERULAR FILTRATION RATE > 60.0 (>42); GLUCOSE, FASTING 94 MG/DL (70-100); POTASSIUM SERUM 3.3 MEQ/L (3.5-5.1); SODIUM LEVEL 137 MEQ/L (136-145)
[2022-06-13 08:00] VITALS: BP 139/95
[2022-06-13] MEDS ORDERED: POTASSIUM CHLORIDE 10MEQ SR TABLET PO ONE (08:00)
[2022-06-13] MEDS: PANTOPRAZOLE 40MG VIAL IV SCH ×2 (08:30→20:28)
[2022-06-13 12:19] LABS: HEMATOCRIT 30.5 % (42.0-52.0); HEMOGLOBIN 10.6 g/dl (13.5-17.5)
[2022-06-13] MEDS ORDERED: ALBUTEROL SULFATE 2.5 MG/0.5 ML INH NEB SOLN NEB PRN (13:20)
[2022-06-13] MEDS: METOPROLOL TART 12.5 MG PER 1/2 TAB PO SCH (14:42)
[2022-06-13 16:00] VITALS: BP 136/83
[2022-06-13 18:20] LABS: HEMATOCRIT 30.8 % (42.0-52.0); HEMOGLOBIN 10.7 g/dl (13.5-17.5)
[2022-06-13 20:00] VITALS: BP 119/90
[2022-06-13] MEDS: cefTRIAXone SOD 1 GM in D5W MINI-BAG PLUS 50 ML IV SCH (20:28)
[2022-06-13] MEDS: ATORVASTATIN 20 MG TAB PO SCH (20:28)
[2022-06-13] MEDS: BUDESONIDE 180MCG INHALER (PULMICORT FLEXHALER) INH SCH (20:43)
[2022-06-13] MEDS ORDERED: RANOLAZINE 500MG ER TAB PO SCH (21:00)
[2022-06-13] MEDS ORDERED: HEPARIN SOD (PORCINE) 5000UNITS/ML 1ML VIAL/SYRINGE SQ SCH (22:00)
[2022-06-14 04:07] VITALS: BP 137/88
[2022-06-14] MEDS: SUCRALFATE SUSP 1GM/10ML UD PO SCH ×4 (04:19→21:00)
[2022-06-14 06:04] LABS: HEMATOCRIT 29.7 % (42.0-52.0); HEMOGLOBIN 10.1 g/dl (13.5-17.5); MEAN CORPUSCULAR HEMOGLOBIN 30.1 pg (27.0-33.0); MEAN CORPUSCULAR VOLUME 88.4 fl (80.0-96.0); PLATELET COUNT, AUTOMATED 131 10^3/uL (150-450); RED BLOOD COUNT 3.36 10^6/uL (4.30-6.10); WHITE BLOOD COUNT 9.3 10^3/uL (4.0-10.0)
[2022-06-14 06:36] LABS: BLOOD UREA NITROGEN 20 MG/DL (9-23); CALCIUM LEVEL 7.4 MG/DL (8.3-10.6); CARBON DIOXIDE LEVEL 21 MMOL/L (20-31); CHLORIDE LEVEL 104 MMOL/L (98-107); CREATININE FOR GFR 0.75 MG/DL (0.70-1.30); GLOMERULAR FILTRATION RATE > 60.0 (>42); GLUCOSE, FASTING 126 MG/DL (74-106); MAGNESIUM LEVEL 1.6 MG/DL (1.8-2.4); PHOSPHORUS LEVEL 2.6 MG/DL (2.4-5.1); POTASSIUM SERUM 3.5 MMOL/L (3.5-5.1); SODIUM LEVEL 137 MMOL/L (136-145)
[2022-06-14] MEDS: BUDESONIDE 180MCG INHALER (PULMICORT FLEXHALER) INH SCH (07:35)
[2022-06-14 07:58] LABS: ANISOCYTOSIS 1+; ATYPICAL LYMPH 3 % (0-5); EOSINOPHILS 1 % (0-3); LYMPHOCYTES 18 % (16-44); MONOCYTES 1 % (0-5); NEUTROPHILS 73 % (28-66)
[2022-06-14 08:00] VITALS: BP 140/92
[2022-06-14] MEDS ORDERED: POTASSIUM CHLORIDE 10MEQ SR TABLET PO ONE (08:00)
[2022-06-14] MEDS: BUDESONIDE 0.5 MG/2 ML INHALATION SUSPENSION INH SCH ×2 (08:00→19:26)
[2022-06-14] MEDS ORDERED: MAGNESIUM OXIDE 400MG TAB (MAG-OX) PO ONE (08:00)
[2022-06-14 08:01] LABS: PLATELET ESTIMATE NORMAL (NORMAL); POLYCHROMASIA 1+
[2022-06-14] MEDS: METOPROLOL TART 12.5 MG PER 1/2 TAB PO SCH (08:27)
[2022-06-14] MEDS: PANTOPRAZOLE 40MG VIAL IV SCH (08:27)
[2022-06-14] MEDS: CEFDINIR 300 MG CAP (OMNICEF) PO SCH ×2 (11:48→20:57)
[2022-06-14] MEDS: ASPIRIN 81MG ENTERIC TABLET PO SCH (11:51)
[2022-06-14] MEDS: HEPARIN SOD (PORCINE) 5000UNITS/ML 1ML VIAL/SYRINGE SQ SCH ×2 (13:51→21:23)
[2022-06-14 14:20] LABS: FERRITIN 102.9 NG/ML (10.5-307.3); IRON (FE) 28 UG/DL (65-175); PERCENT SATURATION 13.4 % (19.7-50.0); TOTAL IRON BINDING CAPACITY 209 UG/DL (250-425); VITAMIN B12 LEVEL 501 PG/ML (211-911)
[2022-06-14 16:00] VITALS: BP 128/74
[2022-06-14 20:00] VITALS: BP 137/89
[2022-06-14 20:32] LABS: FOLATE 11.58 NG/ML (>5.4)
[2022-06-14] MEDS: ATORVASTATIN 20 MG TAB PO SCH (20:57)
[2022-06-14] MEDS: PANTOPRAZOLE 40MG TAB (PROTONIX) PO SCH (20:57)
[2022-06-14 23:30] VITALS: BP 115/75
[2022-06-15] MEDS: SUCRALFATE SUSP 1GM/10ML UD PO SCH ×4 (04:39→21:07)
[2022-06-15 04:45] VITALS: BP 136/96
[2022-06-15] MEDS: METOPROLOL TART 25 MG TABLET PO SCH (05:04)
[2022-06-15 06:33] VITALS: BP 153/88
[2022-06-15 07:42] LABS: BLOOD UREA NITROGEN 15 MG/DL (9-23); CALCIUM LEVEL 7.5 MG/DL (8.3-10.6); CARBON DIOXIDE LEVEL 21 MMOL/L (20-31); CHLORIDE LEVEL 104 MMOL/L (98-107); CREATININE FOR GFR 0.66 MG/DL (0.70-1.30); GLOMERULAR FILTRATION RATE > 60.0 (>42); GLUCOSE, FASTING 110 MG/DL (74-106); POTASSIUM SERUM 4.2 MMOL/L (3.5-5.1); SODIUM LEVEL 136 MMOL/L (136-145)
[2022-06-15] MEDS: BUDESONIDE 0.5 MG/2 ML INHALATION SUSPENSION INH SCH ×2 (07:58→20:00)
[2022-06-15] MEDS: FERROUS SULFATE 325MG TAB PO SCH (09:22)
[2022-06-15] MEDS: ASPIRIN 81MG ENTERIC TABLET PO SCH (09:22)
[2022-06-15] MEDS: PANTOPRAZOLE 40MG TAB (PROTONIX) PO SCH ×2 (09:22→20:46)
[2022-06-15] MEDS: CEFDINIR 300 MG CAP (OMNICEF) PO SCH ×2 (09:22→20:46)
[2022-06-15] MEDS ORDERED: ALBUTEROL 90 MCG/ACT 8GM HFA INHALER INH PRN (19:55)
[2022-06-15] MEDS: BUDESONIDE 180MCG INHALER (PULMICORT FLEXHALER) INH SCH (20:00)
[2022-06-15] MEDS: ATORVASTATIN 20 MG TAB PO SCH (20:46)
[2022-06-16] MEDS: SUCRALFATE SUSP 1GM/10ML UD PO SCH ×4 (04:06→19:36)
[2022-06-16 05:00] VITALS: BP 147/86
[2022-06-16 07:41] LABS: BLOOD UREA NITROGEN 17 MG/DL (9-23); CALCIUM LEVEL 7.6 MG/DL (8.3-10.6); CARBON DIOXIDE LEVEL 23 MMOL/L (20-31); CHLORIDE LEVEL 103 MMOL/L (98-107); CREATININE FOR GFR 0.64 MG/DL (0.70-1.30); GLOMERULAR FILTRATION RATE > 60.0 (>42); GLUCOSE, FASTING 103 MG/DL (74-106); POTASSIUM SERUM 4.9 MMOL/L (3.5-5.1); SODIUM LEVEL 135 MMOL/L (136-145)
[2022-06-16] MEDS: BUDESONIDE 180MCG INHALER (PULMICORT FLEXHALER) INH SCH ×2 (08:05→19:04)
[2022-06-16] MEDS: FERROUS SULFATE 325MG TAB PO SCH (08:36)
[2022-06-16] MEDS: PANTOPRAZOLE 40MG TAB (PROTONIX) PO SCH ×2 (08:36→19:36)
[2022-06-16] MEDS: METOPROLOL TART 25 MG TABLET PO SCH (08:36)
[2022-06-16] MEDS: ASPIRIN 81MG ENTERIC TABLET PO SCH (08:36)
[2022-06-16] MEDS: CEFDINIR 300 MG CAP (OMNICEF) PO SCH ×2 (08:36→19:36)
[2022-06-16] MEDS: ATORVASTATIN 20 MG TAB PO SCH (19:36)
[2022-06-16 20:59] VITALS: BP 132/70
[2022-06-17] MEDS: SUCRALFATE SUSP 1GM/10ML UD PO SCH ×4 (04:53→21:13)
[2022-06-17 05:00] VITALS: BP 124/78
[2022-06-17 07:43] LABS: BLOOD UREA NITROGEN 22 MG/DL (9-23); CALCIUM LEVEL 8.5 MG/DL (8.3-10.6); CARBON DIOXIDE LEVEL 24 MMOL/L (20-31); CHLORIDE LEVEL 103 MMOL/L (98-107); CREATININE FOR GFR 0.73 MG/DL (0.70-1.30); GLOMERULAR FILTRATION RATE > 60.0 (>42); GLUCOSE, FASTING 120 MG/DL (74-106); POTASSIUM SERUM 4.8 MMOL/L (3.5-5.1); SODIUM LEVEL 137 MMOL/L (136-145)
[2022-06-17] MEDS: BUDESONIDE 180MCG INHALER (PULMICORT FLEXHALER) INH SCH ×2 (08:58→20:55)
[2022-06-17] MEDS: CEFDINIR 300 MG CAP (OMNICEF) PO SCH ×2 (10:04→21:13)
[2022-06-17] MEDS: PANTOPRAZOLE 40MG TAB (PROTONIX) PO SCH ×2 (10:04→21:13)
[2022-06-17] MEDS: ASPIRIN 81MG ENTERIC TABLET PO SCH (10:04)
[2022-06-17] MEDS: FERROUS SULFATE 325MG TAB PO SCH (10:04)
[2022-06-17] MEDS: METOPROLOL TART 25 MG TABLET PO SCH (10:05)
[2022-06-17] MEDS: HEPARIN SOD (PORCINE) 5000UNITS/ML 1ML VIAL/SYRINGE SQ SCH ×2 (15:29→21:13)
[2022-06-17] MEDS: ATORVASTATIN 20 MG TAB PO SCH (21:13)
[2022-06-18] MEDS: SUCRALFATE SUSP 1GM/10ML UD PO SCH ×4 (05:56→22:19)
[2022-06-18] MEDS: HEPARIN SOD (PORCINE) 5000UNITS/ML 1ML VIAL/SYRINGE SQ SCH ×3 (05:56→22:19)
[2022-06-18 06:00] VITALS: BP 100/72
[2022-06-18] MEDS: BUDESONIDE 180MCG INHALER (PULMICORT FLEXHALER) INH SCH ×2 (07:16→18:02)
[2022-06-18] MEDS: FERROUS SULFATE 325MG TAB PO SCH (08:25)
[2022-06-18] MEDS: CEFDINIR 300 MG CAP (OMNICEF) PO SCH (08:25)
[2022-06-18] MEDS: PANTOPRAZOLE 40MG TAB (PROTONIX) PO SCH ×2 (08:25→22:19)
[2022-06-18] MEDS: ASPIRIN 81MG ENTERIC TABLET PO SCH (08:26)
[2022-06-18] MEDS: METOPROLOL TART 25 MG TABLET PO SCH (08:27)
[2022-06-18 10:31] LABS: BLOOD UREA NITROGEN 21 MG/DL (9-23); CALCIUM LEVEL 8.3 MG/DL (8.3-10.6); CARBON DIOXIDE LEVEL 24 MMOL/L (20-31); CHLORIDE LEVEL 103 MMOL/L (98-107); CREATININE FOR GFR 0.88 MG/DL (0.70-1.30); GLOMERULAR FILTRATION RATE > 60.0 (>42); GLUCOSE, FASTING 107 MG/DL (74-106); POTASSIUM SERUM 4.5 MMOL/L (3.5-5.1); SODIUM LEVEL 136 MMOL/L (136-145)
[2022-06-18] MEDS ORDERED: DOXYCYCLINE HYCLATE 100MG TABLET PO SCH (21:00)
[2022-06-18 21:43] LABS: BASO % 0.2 % (0.0-1.0); EOS # 0.1 10^3/uL (0.0-0.5); EOS % 1.1 % (0.0-3.0); HEMATOCRIT 27.2 % (42.0-52.0); HEMOGLOBIN 8.8 g/dl (13.5-17.5); LYMPH # 1.2 10^3/uL (1.5-5.0); LYMPH % 13.3 % (24.0-44.0); MEAN CORPUSCULAR HEMOGLOBIN 29.2 pg (27.0-33.0); MEAN CORPUSCULAR HGB CONC 32.4 g/dl (32.0-36.5); MEAN CORPUSCULAR VOLUME 90.4 fl (80.0-96.0); MONO # 0.6 10^3/uL (0.0-0.8); MONO % 7.2 % (2.0-8.0); NEUTROPHILS # 6.8 10^3/uL (1.5-8.5); NEUTROPHILS % 77.4 % (36.0-66.0); PLATELET COUNT, AUTOMATED 421 10^3/uL (150-450); RED BLOOD COUNT 3.01 10^6/uL (4.30-6.10); WHITE BLOOD COUNT 8.8 10^3/uL (4.0-10.0)
[2022-06-18] MEDS: ATORVASTATIN 20 MG TAB PO SCH (22:19)
[2022-06-18 22:21] VITALS: BP 106/64
[2022-06-18] MEDS: PIPERACILLIN/TAZOBACTAM SOD 3.375 GM in D5W MINI-BAG PLUS 50 ML IV SCH (22:27)
[2022-06-18] MEDS ORDERED: VANCOMYCIN HCL 1,000 MG, VIAL MATE ADAPTER 1 EACH in NS 250 ML IV ONE (23:00)
[2022-06-19] MEDS: PIPERACILLIN/TAZOBACTAM SOD 3.375 GM in D5W MINI-BAG PLUS 50 ML IV SCH ×4 (04:48→22:39)
[2022-06-19] MEDS: SUCRALFATE SUSP 1GM/10ML UD PO SCH ×4 (04:48→21:22)
[2022-06-19] MEDS: HEPARIN SOD (PORCINE) 5000UNITS/ML 1ML VIAL/SYRINGE SQ SCH ×2 (04:54→13:39)
[2022-06-19 06:11] VITALS: BP 133/70
[2022-06-19 06:27] LABS: BASO % 0.1 % (0.0-1.0); EOS # 0.1 10^3/uL (0.0-0.5); EOS % 0.8 % (0.0-3.0); HEMATOCRIT 26.5 % (42.0-52.0); HEMOGLOBIN 8.7 g/dl (13.5-17.5); LYMPH # 1.1 10^3/uL (1.5-5.0); LYMPH % 12.3 % (24.0-44.0); MEAN CORPUSCULAR HEMOGLOBIN 29.7 pg (27.0-33.0); MEAN CORPUSCULAR HGB CONC 32.8 g/dl (32.0-36.5); MEAN CORPUSCULAR VOLUME 90.4 fl (80.0-96.0); MONO # 0.7 10^3/uL (0.0-0.8); MONO % 7.6 % (2.0-8.0); NEUTROPHILS # 6.8 10^3/uL (1.5-8.5); NEUTROPHILS % 78.2 % (36.0-66.0); PLATELET COUNT, AUTOMATED 417 10^3/uL (150-450); RED BLOOD COUNT 2.93 10^6/uL (4.30-6.10); WHITE BLOOD COUNT 8.7 10^3/uL (4.0-10.0)
[2022-06-19 07:05] LABS: BLOOD UREA NITROGEN 20 MG/DL (9-23); CALCIUM LEVEL 7.2 MG/DL (8.3-10.6); CARBON DIOXIDE LEVEL 23 MMOL/L (20-31); CHLORIDE LEVEL 104 MMOL/L (98-107); CREATININE FOR GFR 0.86 MG/DL (0.70-1.30); GLOMERULAR FILTRATION RATE > 60.0 (>42); GLUCOSE, FASTING 102 MG/DL (74-106); POTASSIUM SERUM 4.8 MMOL/L (3.5-5.1); SODIUM LEVEL 136 MMOL/L (136-145)
[2022-06-19] MEDS: BUDESONIDE 180MCG INHALER (PULMICORT FLEXHALER) INH SCH ×2 (08:17→19:23)
[2022-06-19] MEDS: FERROUS SULFATE 325MG TAB PO SCH (09:36)
[2022-06-19] MEDS: PANTOPRAZOLE 40MG TAB (PROTONIX) PO SCH ×2 (09:36→21:22)
[2022-06-19] MEDS: ASPIRIN 81MG ENTERIC TABLET PO SCH (09:36)
[2022-06-19] MEDS: METOPROLOL TART 25 MG TABLET PO SCH (09:36)
[2022-06-19] MEDS: VANCOMYCIN HCL 500 MG in D5W MINI-BAG PLUS 100 ML IV SCH ×2 (09:37→21:23)
[2022-06-19] MEDS ORDERED: LIDOCAINE 1% MDV 20ML VIAL SC ONE (11:55)
[2022-06-19 14:00] VITALS: BP 127/68
[2022-06-19 17:10] LABS: HEMATOCRIT 28.5 % (42.0-52.0); HEMOGLOBIN 9.2 g/dl (13.5-17.5)
[2022-06-19 20:53] VITALS: BP 116/69
[2022-06-19] MEDS: ATORVASTATIN 20 MG TAB PO SCH (21:23)
[2022-06-20] MEDS: PIPERACILLIN/TAZOBACTAM SOD 3.375 GM in D5W MINI-BAG PLUS 50 ML IV SCH ×4 (04:44→21:28)
[2022-06-20] MEDS: SUCRALFATE SUSP 1GM/10ML UD PO SCH ×4 (04:44→21:27)
[2022-06-20] MEDS: VANCOMYCIN HCL 750 MG, VIAL MATE ADAPTER 1 EACH in D5W 250 ML IV SCH ×2 (05:59→18:35)
[2022-06-20 06:26] VITALS: BP 129/70
[2022-06-20 06:33] LABS: HEMATOCRIT 24.8 % (42.0-52.0); HEMOGLOBIN 8.2 g/dl (13.5-17.5); MEAN CORPUSCULAR HEMOGLOBIN 29.8 pg (27.0-33.0); MEAN CORPUSCULAR HGB CONC 33.1 g/dl (32.0-36.5); MEAN CORPUSCULAR VOLUME 90.2 fl (80.0-96.0); PLATELET COUNT, AUTOMATED 440 10^3/uL (150-450); RED BLOOD COUNT 2.75 10^6/uL (4.30-6.10); WHITE BLOOD COUNT 6.6 10^3/uL (4.0-10.0)
[2022-06-20 07:02] LABS: BLOOD UREA NITROGEN 24 MG/DL (9-23); CALCIUM LEVEL 7.1 MG/DL (8.3-10.6); CARBON DIOXIDE LEVEL 19 MMOL/L (20-31); CHLORIDE LEVEL 104 MMOL/L (98-107); CREATININE FOR GFR 0.85 MG/DL (0.70-1.30); GLOMERULAR FILTRATION RATE > 60.0 (>42); GLUCOSE, FASTING 117 MG/DL (74-106); MAGNESIUM LEVEL 1.8 MG/DL (1.8-2.4); PHOSPHORUS LEVEL 3.1 MG/DL (2.4-5.1); POTASSIUM SERUM 4.9 MMOL/L (3.5-5.1); SODIUM LEVEL 135 MMOL/L (136-145)
[2022-06-20] MEDS: BUDESONIDE 180MCG INHALER (PULMICORT FLEXHALER) INH SCH ×2 (07:18→19:24)
[2022-06-20] MEDS: FERROUS SULFATE 325MG TAB PO SCH (08:45)
[2022-06-20] MEDS: ASPIRIN 81MG ENTERIC TABLET PO SCH (08:45)
[2022-06-20] MEDS: PANTOPRAZOLE 40MG TAB (PROTONIX) PO SCH ×2 (08:45→21:27)
[2022-06-20] MEDS: METOPROLOL TART 25 MG TABLET PO SCH (08:46)
[2022-06-20] MEDS: ATORVASTATIN 20 MG TAB PO SCH (21:27)
[2022-06-20 22:00] VITALS: BP 124/74
[2022-06-21] MEDS: PIPERACILLIN/TAZOBACTAM SOD 3.375 GM in D5W MINI-BAG PLUS 50 ML IV SCH (04:36)
[2022-06-21] MEDS: SUCRALFATE SUSP 1GM/10ML UD PO SCH ×4 (04:37→21:55)
[2022-06-21] MEDS: VANCOMYCIN HCL 750 MG, VIAL MATE ADAPTER 1 EACH in D5W 250 ML IV SCH (05:53)
[2022-06-21 06:00] VITALS: BP 124/73
[2022-06-21] MEDS: BUDESONIDE 180MCG INHALER (PULMICORT FLEXHALER) INH SCH ×2 (07:15→19:42)
[2022-06-21] MEDS: ASPIRIN 81MG ENTERIC TABLET PO SCH (08:11)
[2022-06-21] MEDS: FERROUS SULFATE 325MG TAB PO SCH (08:11)
[2022-06-21] MEDS: PANTOPRAZOLE 40MG TAB (PROTONIX) PO SCH ×2 (08:11→21:56)
[2022-06-21] MEDS: METOPROLOL TART 25 MG TABLET PO SCH (08:12)
[2022-06-21] MEDS: ERTAPENEM SODIUM 1 GM in NS MINI-BAG PLUS 50 ML IV SCH (08:12)
[2022-06-21 14:00] VITALS: BP 120/69
[2022-06-21] MEDS: ATORVASTATIN 20 MG TAB PO SCH (21:56)
[2022-06-21 22:00] VITALS: BP 125/83
[2022-06-22] MEDS: SUCRALFATE SUSP 1GM/10ML UD PO SCH ×4 (04:58→21:34)
[2022-06-22 06:00] VITALS: BP 118/64
[2022-06-22 07:11] LABS: BASO % 0.5 % (0.0-1.0); EOS # 0.1 10^3/uL (0.0-0.5); EOS % 1.9 % (0.0-3.0); HEMATOCRIT 26.6 % (42.0-52.0); HEMOGLOBIN 8.5 g/dl (13.5-17.5); MEAN CORPUSCULAR HEMOGLOBIN 28.7 pg (27.0-33.0); MEAN CORPUSCULAR VOLUME 89.9 fl (80.0-96.0); MONO # 0.6 10^3/uL (0.0-0.8); MONO % 9.4 % (2.0-8.0); NEUTROPHILS # 4.7 10^3/uL (1.5-8.5); NEUTROPHILS % 72.6 % (36.0-66.0); PLATELET COUNT, AUTOMATED 516 10^3/uL (150-450); RED BLOOD COUNT 2.96 10^6/uL (4.30-6.10); WHITE BLOOD COUNT 6.5 10^3/uL (4.0-10.0)
[2022-06-22] MEDS: BUDESONIDE 180MCG INHALER (PULMICORT FLEXHALER) INH SCH ×2 (07:20→19:14)
[2022-06-22 07:54] LABS: BLOOD UREA NITROGEN 17 MG/DL (9-23); CALCIUM LEVEL 7.5 MG/DL (8.3-10.6); CARBON DIOXIDE LEVEL 22 MMOL/L (20-31); CHLORIDE LEVEL 103 MMOL/L (98-107); CREATININE FOR GFR 0.74 MG/DL (0.70-1.30); GLOMERULAR FILTRATION RATE > 60.0 (>42); GLUCOSE, FASTING 111 MG/DL (74-106); POTASSIUM SERUM 4.7 MMOL/L (3.5-5.1); SODIUM LEVEL 134 MMOL/L (136-145)
[2022-06-22] MEDS: ASPIRIN 81MG ENTERIC TABLET PO SCH (08:31)
[2022-06-22] MEDS: FERROUS SULFATE 325MG TAB PO SCH (08:32)
[2022-06-22] MEDS: PANTOPRAZOLE 40MG TAB (PROTONIX) PO SCH ×2 (08:32→20:07)
[2022-06-22] MEDS: METOPROLOL TART 25 MG TABLET PO SCH (08:32)
[2022-06-22] MEDS: ERTAPENEM SODIUM 1 GM in NS MINI-BAG PLUS 50 ML IV SCH (08:33)
[2022-06-22 14:00] VITALS: BP 95/57
[2022-06-22] MEDS: ATORVASTATIN 20 MG TAB PO SCH (20:07)
[2022-06-22 20:43] VITALS: BP 124/75
[2022-06-23] MEDS: SUCRALFATE SUSP 1GM/10ML UD PO SCH ×4 (03:43→20:48)
[2022-06-23 05:19] VITALS: BP 131/75
[2022-06-23 06:15] LABS: BASO # 0.1 10^3/uL (0.0-0.2); BASO % 0.8 % (0.0-1.0); EOS # 0.2 10^3/uL (0.0-0.5); EOS % 2.3 % (0.0-3.0); HEMATOCRIT 28.6 % (42.0-52.0); HEMOGLOBIN 9.4 g/dl (13.5-17.5); LYMPH # 1.1 10^3/uL (1.5-5.0); LYMPH % 16.2 % (24.0-44.0); MEAN CORPUSCULAR HEMOGLOBIN 29.7 pg (27.0-33.0); MEAN CORPUSCULAR HGB CONC 32.9 g/dl (32.0-36.5); MEAN CORPUSCULAR VOLUME 90.5 fl (80.0-96.0); MONO # 0.8 10^3/uL (0.0-0.8); MONO % 11.6 % (2.0-8.0); NEUTROPHILS # 4.4 10^3/uL (1.5-8.5); NEUTROPHILS % 68.3 % (36.0-66.0); PLATELET COUNT, AUTOMATED 528 10^3/uL (150-450); RED BLOOD COUNT 3.16 10^6/uL (4.30-6.10); WHITE BLOOD COUNT 6.5 10^3/uL (4.0-10.0)
[2022-06-23 06:46] LABS: BLOOD UREA NITROGEN 18 MG/DL (9-23); CARBON DIOXIDE LEVEL 24 MMOL/L (20-31); CHLORIDE LEVEL 104 MMOL/L (98-107); CREATININE FOR GFR 0.82 MG/DL (0.70-1.30); GLOMERULAR FILTRATION RATE > 60.0 (>42); GLUCOSE, FASTING 104 MG/DL (74-106); POTASSIUM SERUM 4.6 MMOL/L (3.5-5.1); SODIUM LEVEL 136 MMOL/L (136-145)
[2022-06-23] MEDS: BUDESONIDE 180MCG INHALER (PULMICORT FLEXHALER) INH SCH ×2 (09:02→19:09)
[2022-06-23] MEDS: ERTAPENEM SODIUM 1 GM in NS MINI-BAG PLUS 50 ML IV SCH (10:02)
[2022-06-23] MEDS: ONDANSETRON 4MG 2ML VIAL IV PRN (10:04)
[2022-06-23] MEDS: ENOXAPARIN 30MG/0.3ML SYRINGE (J1650 PER 10MG) SC SCH (10:05)
[2022-06-23] MEDS: ASPIRIN 81MG ENTERIC TABLET PO SCH (10:05)
[2022-06-23] MEDS: FERROUS SULFATE 325MG TAB PO SCH (10:05)
[2022-06-23] MEDS: PANTOPRAZOLE 40MG TAB (PROTONIX) PO SCH ×2 (10:05→20:48)
[2022-06-23] MEDS: METOPROLOL TART 25 MG TABLET PO SCH (10:08)
[2022-06-23 11:25] LABS: HIV 1&2 SCREEN CENTAUR NEGATIVE (NEGATIVE)
[2022-06-23] MEDS: LINEZOLID 600MG TABLET (ZYVOX) PO SCH ×2 (12:39→20:48)
[2022-06-23 14:19] VITALS: BP 154/85
[2022-06-23] MEDS: ATORVASTATIN 20 MG TAB PO SCH (20:47)
[2022-06-23] MEDS: DIAPER RELIEF PASTE (DESITIN) 60GM TOP SCH (20:48)
[2022-06-23 21:08] VITALS: BP 120/70
[2022-06-24] MEDS: SUCRALFATE SUSP 1GM/10ML UD PO SCH ×4 (03:00→23:03)
[2022-06-24 05:21] VITALS: BP 116/67
[2022-06-24 06:29] LABS: BASO % 0.7 % (0.0-1.0); EOS # 0.1 10^3/uL (0.0-0.5); EOS % 2.3 % (0.0-3.0); HEMATOCRIT 27.8 % (42.0-52.0); HEMOGLOBIN 9.2 g/dl (13.5-17.5); LYMPH # 1.2 10^3/uL (1.5-5.0); LYMPH % 20.6 % (24.0-44.0); MEAN CORPUSCULAR HEMOGLOBIN 29.6 pg (27.0-33.0); MEAN CORPUSCULAR HGB CONC 33.1 g/dl (32.0-36.5); MEAN CORPUSCULAR VOLUME 89.4 fl (80.0-96.0); MONO # 0.8 10^3/uL (0.0-0.8); MONO % 13.1 % (2.0-8.0); NEUTROPHILS # 3.8 10^3/uL (1.5-8.5); NEUTROPHILS % 62.6 % (36.0-66.0); PLATELET COUNT, AUTOMATED 524 10^3/uL (150-450); RED BLOOD COUNT 3.11 10^6/uL (4.30-6.10)
[2022-06-24 06:56] LABS: BLOOD UREA NITROGEN 19 MG/DL (9-23); CALCIUM LEVEL 7.8 MG/DL (8.3-10.6); CARBON DIOXIDE LEVEL 25 MMOL/L (20-31); CHLORIDE LEVEL 101 MMOL/L (98-107); CREATININE FOR GFR 0.88 MG/DL (0.70-1.30); GLOMERULAR FILTRATION RATE > 60.0 (>42); GLUCOSE, FASTING 94 MG/DL (74-106); POTASSIUM SERUM 4.9 MMOL/L (3.5-5.1); SODIUM LEVEL 135 MMOL/L (136-145)
[2022-06-24] MEDS: BUDESONIDE 180MCG INHALER (PULMICORT FLEXHALER) INH SCH ×2 (07:38→21:02)
[2022-06-24] MEDS: LINEZOLID 600MG TABLET (ZYVOX) PO SCH ×2 (08:15→21:02)
[2022-06-24] MEDS: METOPROLOL TART 25 MG TABLET PO SCH (08:15)
[2022-06-24] MEDS: FERROUS SULFATE 325MG TAB PO SCH (08:15)
[2022-06-24] MEDS: PANTOPRAZOLE 40MG TAB (PROTONIX) PO SCH ×2 (08:15→21:02)
[2022-06-24] MEDS: ASPIRIN 81MG ENTERIC TABLET PO SCH (08:15)
[2022-06-24] MEDS: ENOXAPARIN 30MG/0.3ML SYRINGE (J1650 PER 10MG) SC SCH (08:16)
[2022-06-24] MEDS: ERTAPENEM SODIUM 1 GM in NS MINI-BAG PLUS 50 ML IV SCH (08:17)
[2022-06-24] MEDS: DIAPER RELIEF PASTE (DESITIN) 60GM TOP SCH ×2 (08:22→21:03)
[2022-06-24 14:00] VITALS: BP 124/76
[2022-06-24] MEDS: ATORVASTATIN 20 MG TAB PO SCH (21:02)
[2022-06-25 06:06] VITALS: BP 126/77
[2022-06-25] MEDS: SUCRALFATE SUSP 1GM/10ML UD PO SCH ×4 (06:12→22:28)
[2022-06-25] MEDS: BUDESONIDE 180MCG INHALER (PULMICORT FLEXHALER) INH SCH ×2 (07:35→20:08)
[2022-06-25] MEDS: PANTOPRAZOLE 40MG TAB (PROTONIX) PO SCH ×2 (08:19→20:52)
[2022-06-25] MEDS: ERTAPENEM SODIUM 1 GM in NS MINI-BAG PLUS 50 ML IV SCH (08:19)
[2022-06-25] MEDS: ASPIRIN 81MG ENTERIC TABLET PO SCH (08:19)
[2022-06-25] MEDS: FERROUS SULFATE 325MG TAB PO SCH (08:19)
[2022-06-25] MEDS: LINEZOLID 600MG TABLET (ZYVOX) PO SCH ×2 (08:19→20:52)
[2022-06-25] MEDS: METOPROLOL TART 25 MG TABLET PO SCH (08:20)
[2022-06-25] MEDS: ENOXAPARIN 30MG/0.3ML SYRINGE (J1650 PER 10MG) SC SCH (08:23)
[2022-06-25] MEDS: DIAPER RELIEF PASTE (DESITIN) 60GM TOP SCH ×2 (08:24→20:53)
[2022-06-25 09:35] LABS: BASO # 0.1 10^3/uL (0.0-0.2); EOS # 0.1 10^3/uL (0.0-0.5); EOS % 2.8 % (0.0-3.0); HEMATOCRIT 27.8 % (42.0-52.0); LYMPH # 0.9 10^3/uL (1.5-5.0); LYMPH % 18.7 % (24.0-44.0); MEAN CORPUSCULAR HEMOGLOBIN 29.3 pg (27.0-33.0); MEAN CORPUSCULAR HGB CONC 32.4 g/dl (32.0-36.5); MEAN CORPUSCULAR VOLUME 90.6 fl (80.0-96.0); MONO # 0.6 10^3/uL (0.0-0.8); MONO % 11.7 % (2.0-8.0); NEUTROPHILS # 3.3 10^3/uL (1.5-8.5); PLATELET COUNT, AUTOMATED 511 10^3/uL (150-450); RED BLOOD COUNT 3.07 10^6/uL (4.30-6.10)
[2022-06-25 10:23] LABS: BLOOD UREA NITROGEN 20 MG/DL (9-23); CALCIUM LEVEL 7.8 MG/DL (8.3-10.6); CARBON DIOXIDE LEVEL 26 MMOL/L (20-31); CHLORIDE LEVEL 104 MMOL/L (98-107); CREATININE FOR GFR 0.76 MG/DL (0.70-1.30); GLOMERULAR FILTRATION RATE > 60.0 (>42); GLUCOSE, FASTING 106 MG/DL (74-106); SODIUM LEVEL 137 MMOL/L (136-145)
[2022-06-25 15:00] VITALS: BP 125/71
[2022-06-25] MEDS: ATORVASTATIN 20 MG TAB PO SCH (20:52)
[2022-06-25 20:58] VITALS: BP 126/71
[2022-06-26] MEDS: SUCRALFATE SUSP 1GM/10ML UD PO SCH ×4 (03:10→21:11)
[2022-06-26 04:35] VITALS: BP 138/78
[2022-06-26 06:04] LABS: BASO % 0.4 % (0.0-1.0); EOS # 0.1 10^3/uL (0.0-0.5); EOS % 2.7 % (0.0-3.0); HEMATOCRIT 28.8 % (42.0-52.0); HEMOGLOBIN 9.2 g/dl (13.5-17.5); LYMPH % 19.8 % (24.0-44.0); MEAN CORPUSCULAR HGB CONC 31.9 g/dl (32.0-36.5); MEAN CORPUSCULAR VOLUME 90.9 fl (80.0-96.0); MONO # 0.6 10^3/uL (0.0-0.8); MONO % 11.7 % (2.0-8.0); NEUTROPHILS # 3.1 10^3/uL (1.5-8.5); NEUTROPHILS % 64.8 % (36.0-66.0); PLATELET COUNT, AUTOMATED 482 10^3/uL (150-450); RED BLOOD COUNT 3.17 10^6/uL (4.30-6.10); WHITE BLOOD COUNT 4.8 10^3/uL (4.0-10.0)
[2022-06-26 06:37] LABS: BLOOD UREA NITROGEN 19 MG/DL (9-23); CALCIUM LEVEL 8.1 MG/DL (8.3-10.6); CARBON DIOXIDE LEVEL 24 MMOL/L (20-31); CHLORIDE LEVEL 104 MMOL/L (98-107); CREATININE FOR GFR 0.81 MG/DL (0.70-1.30); GLOMERULAR FILTRATION RATE > 60.0 (>42); GLUCOSE, FASTING 116 MG/DL (74-106); POTASSIUM SERUM 4.9 MMOL/L (3.5-5.1); SODIUM LEVEL 136 MMOL/L (136-145)
[2022-06-26] MEDS: BUDESONIDE 180MCG INHALER (PULMICORT FLEXHALER) INH SCH ×2 (07:34→20:42)
[2022-06-26] MEDS: ENOXAPARIN 30MG/0.3ML SYRINGE (J1650 PER 10MG) SC SCH (11:01)
[2022-06-26] MEDS: ASPIRIN 81MG ENTERIC TABLET PO SCH (11:01)
[2022-06-26] MEDS: LINEZOLID 600MG TABLET (ZYVOX) PO SCH ×2 (11:01→21:11)
[2022-06-26] MEDS: PANTOPRAZOLE 40MG TAB (PROTONIX) PO SCH ×2 (11:01→21:11)
[2022-06-26] MEDS: FERROUS SULFATE 325MG TAB PO SCH (11:01)
[2022-06-26] MEDS: ERTAPENEM SODIUM 1 GM in NS MINI-BAG PLUS 50 ML IV SCH (11:02)
[2022-06-26] MEDS: DIAPER RELIEF PASTE (DESITIN) 60GM TOP SCH ×2 (11:02→21:11)
[2022-06-26] MEDS: METOPROLOL TART 25 MG TABLET PO SCH (11:05)
[2022-06-26] MEDS: ATORVASTATIN 20 MG TAB PO SCH (21:11)
[2022-06-27] MEDS: SUCRALFATE SUSP 1GM/10ML UD PO SCH ×4 (04:00→20:58)
[2022-06-27 05:20] VITALS: BP 134/91
[2022-06-27 06:15] LABS: BASO # 0.1 10^3/uL (0.0-0.2); BASO % 0.9 % (0.0-1.0); EOS # 0.1 10^3/uL (0.0-0.5); EOS % 2.4 % (0.0-3.0); HEMATOCRIT 30.3 % (42.0-52.0); HEMOGLOBIN 9.8 g/dl (13.5-17.5); LYMPH # 1.1 10^3/uL (1.5-5.0); LYMPH % 20.9 % (24.0-44.0); MEAN CORPUSCULAR HEMOGLOBIN 29.4 pg (27.0-33.0); MEAN CORPUSCULAR HGB CONC 32.3 g/dl (32.0-36.5); MONO # 0.6 10^3/uL (0.0-0.8); MONO % 10.8 % (2.0-8.0); NEUTROPHILS # 3.5 10^3/uL (1.5-8.5); NEUTROPHILS % 64.3 % (36.0-66.0); PLATELET COUNT, AUTOMATED 482 10^3/uL (150-450); RED BLOOD COUNT 3.33 10^6/uL (4.30-6.10); WHITE BLOOD COUNT 5.5 10^3/uL (4.0-10.0)
[2022-06-27 06:30] LABS: CHLORIDE LEVEL 105 MMOL/L (98-107); POTASSIUM SERUM 5.3 MMOL/L (3.5-5.1); SODIUM LEVEL 137 MMOL/L (136-145)
[2022-06-27 06:31] LABS: CARBON DIOXIDE LEVEL 25 MMOL/L (20-31)
[2022-06-27 06:36] LABS: BLOOD UREA NITROGEN 20 MG/DL (9-23); GLUCOSE, FASTING 97 MG/DL (74-106)
[2022-06-27 06:38] LABS: CREATININE FOR GFR 0.77 MG/DL (0.70-1.30); GLOMERULAR FILTRATION RATE > 60.0 (>42)
[2022-06-27] MEDS: BUDESONIDE 180MCG INHALER (PULMICORT FLEXHALER) INH SCH ×2 (07:19→19:26)
[2022-06-27] MEDS: DIAPER RELIEF PASTE (DESITIN) 60GM TOP SCH ×2 (08:43→20:58)
[2022-06-27] MEDS: ENOXAPARIN 30MG/0.3ML SYRINGE (J1650 PER 10MG) SC SCH (08:43)
[2022-06-27] MEDS: PANTOPRAZOLE 40MG TAB (PROTONIX) PO SCH ×2 (08:43→20:58)
[2022-06-27] MEDS: LINEZOLID 600MG TABLET (ZYVOX) PO SCH ×2 (08:43→20:57)
[2022-06-27] MEDS: FERROUS SULFATE 325MG TAB PO SCH (08:43)
[2022-06-27] MEDS: ASPIRIN 81MG ENTERIC TABLET PO SCH (08:43)
[2022-06-27] MEDS: METOPROLOL TART 25 MG TABLET PO SCH (09:23)
[2022-06-27] MEDS: ERTAPENEM SODIUM 1 GM in NS MINI-BAG PLUS 50 ML IV SCH (09:26)
[2022-06-27 13:51] VITALS: BP 132/74
[2022-06-27 14:29] LABS: CHLORIDE LEVEL 103 MMOL/L (98-107); SODIUM LEVEL 138 MMOL/L (136-145)
[2022-06-27 14:30] LABS: CARBON DIOXIDE LEVEL 24 MMOL/L (20-31)
[2022-06-27 14:35] LABS: BLOOD UREA NITROGEN 19 MG/DL (9-23); GLUCOSE, FASTING 104 MG/DL (74-106)
[2022-06-27 14:37] LABS: CREATININE FOR GFR 0.78 MG/DL (0.70-1.30); GLOMERULAR FILTRATION RATE > 60.0 (>42)
[2022-06-27 14:56] LABS: POTASSIUM SERUM 4.8 MMOL/L (3.5-5.1)
[2022-06-27] MEDS: ATORVASTATIN 20 MG TAB PO SCH (20:57)
[2022-06-28] MEDS: SUCRALFATE SUSP 1GM/10ML UD PO SCH ×4 (03:19→21:49)
[2022-06-28 06:42] VITALS: BP 123/84
[2022-06-28 07:28] LABS: BASO % 0.8 % (0.0-1.0); EOS # 0.1 10^3/uL (0.0-0.5); EOS % 2.3 % (0.0-3.0); HEMOGLOBIN 10.2 g/dl (13.5-17.5); LYMPH % 19.3 % (24.0-44.0); MEAN CORPUSCULAR HEMOGLOBIN 28.9 pg (27.0-33.0); MEAN CORPUSCULAR HGB CONC 30.9 g/dl (32.0-36.5); MEAN CORPUSCULAR VOLUME 93.5 fl (80.0-96.0); MONO # 0.5 10^3/uL (0.0-0.8); MONO % 9.3 % (2.0-8.0); NEUTROPHILS # 3.6 10^3/uL (1.5-8.5); NEUTROPHILS % 67.5 % (36.0-66.0); PLATELET COUNT, AUTOMATED 432 10^3/uL (150-450); RED BLOOD COUNT 3.53 10^6/uL (4.30-6.10); WHITE BLOOD COUNT 5.3 10^3/uL (4.0-10.0)
[2022-06-28] MEDS: BUDESONIDE 180MCG INHALER (PULMICORT FLEXHALER) INH SCH ×2 (07:29→18:52)
[2022-06-28 07:58] LABS: CHLORIDE LEVEL 104 MMOL/L (98-107); POTASSIUM SERUM 4.8 MMOL/L (3.5-5.1); SODIUM LEVEL 137 MMOL/L (136-145)
[2022-06-28 07:59] LABS: CARBON DIOXIDE LEVEL 24 MMOL/L (20-31)
[2022-06-28 08:03] LABS: BLOOD UREA NITROGEN 20 MG/DL (9-23)
[2022-06-28 08:04] LABS: CALCIUM LEVEL 8.1 MG/DL (8.3-10.6); GLUCOSE, FASTING 105 MG/DL (74-106)
[2022-06-28 08:06] LABS: CREATININE FOR GFR 0.87 MG/DL (0.70-1.30); GLOMERULAR FILTRATION RATE > 60.0 (>42)
[2022-06-28] MEDS: ERTAPENEM SODIUM 1 GM in NS MINI-BAG PLUS 50 ML IV SCH (10:38)
[2022-06-28] MEDS: ASPIRIN 81MG ENTERIC TABLET PO SCH (10:38)
[2022-06-28] MEDS: LINEZOLID 600MG TABLET (ZYVOX) PO SCH ×2 (10:38→20:16)
[2022-06-28] MEDS: FERROUS SULFATE 325MG TAB PO SCH (10:38)
[2022-06-28] MEDS: PANTOPRAZOLE 40MG TAB (PROTONIX) PO SCH ×2 (10:39→20:16)
[2022-06-28] MEDS: ENOXAPARIN 30MG/0.3ML SYRINGE (J1650 PER 10MG) SC SCH (10:39)
[2022-06-28] MEDS: DIAPER RELIEF PASTE (DESITIN) 60GM TOP SCH ×2 (10:40→20:17)
[2022-06-28] MEDS: METOPROLOL TART 25 MG TABLET PO SCH (10:40)
[2022-06-28] MEDS: ATORVASTATIN 20 MG TAB PO SCH (20:16)
[2022-06-29] MEDS: SUCRALFATE SUSP 1GM/10ML UD PO SCH ×4 (04:10→21:14)
[2022-06-29 05:39] LABS: HEMATOCRIT 28.5 % (42.0-52.0); HEMOGLOBIN 9.1 g/dl (13.5-17.5); MEAN CORPUSCULAR HEMOGLOBIN 29.1 pg (27.0-33.0); MEAN CORPUSCULAR HGB CONC 31.9 g/dl (32.0-36.5); MEAN CORPUSCULAR VOLUME 91.1 fl (80.0-96.0); PLATELET COUNT, AUTOMATED 421 10^3/uL (150-450); RED BLOOD COUNT 3.13 10^6/uL (4.30-6.10); WHITE BLOOD COUNT 5.1 10^3/uL (4.0-10.0)
[2022-06-29 06:00] VITALS: BP 136/72
[2022-06-29] MEDS: BUDESONIDE 180MCG INHALER (PULMICORT FLEXHALER) INH SCH ×2 (07:18→19:02)
[2022-06-29 08:00] VITALS: BP 132/70
[2022-06-29] MEDS: LINEZOLID 600MG TABLET (ZYVOX) PO SCH ×2 (09:22→21:13)
[2022-06-29] MEDS: PANTOPRAZOLE 40MG TAB (PROTONIX) PO SCH ×2 (09:23→21:13)
[2022-06-29] MEDS: METOPROLOL TART 25 MG TABLET PO SCH (09:23)
[2022-06-29] MEDS: ENOXAPARIN 30MG/0.3ML SYRINGE (J1650 PER 10MG) SC SCH (09:24)
[2022-06-29] MEDS: DIAPER RELIEF PASTE (DESITIN) 60GM TOP SCH ×2 (09:25→21:13)
[2022-06-29] MEDS: ERTAPENEM SODIUM 1 GM in NS MINI-BAG PLUS 50 ML IV SCH (11:01)
[2022-06-29] MEDS: FERROUS SULFATE 325MG TAB PO SCH (11:41)
[2022-06-29] MEDS: ASPIRIN 81MG ENTERIC TABLET PO SCH (11:41)
[2022-06-29] MEDS: ATORVASTATIN 20 MG TAB PO SCH (21:13)
[2022-06-30] MEDS: SUCRALFATE SUSP 1GM/10ML UD PO SCH ×4 (04:40→21:19)
[2022-06-30 06:00] VITALS: BP 145/90
[2022-06-30] MEDS: BUDESONIDE 180MCG INHALER (PULMICORT FLEXHALER) INH SCH ×2 (07:35→19:53)
[2022-06-30 08:00] VITALS: BP 144/90
[2022-06-30] MEDS: LINEZOLID 600MG TABLET (ZYVOX) PO SCH ×2 (09:14→21:19)
[2022-06-30] MEDS: METOPROLOL TART 25 MG TABLET PO SCH (09:15)
[2022-06-30] MEDS: ASPIRIN 81MG ENTERIC TABLET PO SCH (09:15)
[2022-06-30] MEDS: PANTOPRAZOLE 40MG TAB (PROTONIX) PO SCH ×2 (09:15→21:19)
[2022-06-30] MEDS: DIAPER RELIEF PASTE (DESITIN) 60GM TOP SCH ×4 (09:16→21:40)
[2022-06-30] MEDS: ENOXAPARIN 30MG/0.3ML SYRINGE (J1650 PER 10MG) SC SCH (09:16)
[2022-06-30] MEDS: FERROUS SULFATE 325MG TAB PO SCH (09:16)
[2022-06-30 14:00] VITALS: BP 124/76
[2022-06-30] MEDS: ATORVASTATIN 20 MG TAB PO SCH (21:19)
[2022-07-01 05:00] VITALS: BP 141/87
[2022-07-01] MEDS: SUCRALFATE SUSP 1GM/10ML UD PO SCH ×4 (05:00→22:50)
[2022-07-01] MEDS: BUDESONIDE 180MCG INHALER (PULMICORT FLEXHALER) INH SCH ×2 (07:09→18:11)
[2022-07-01] MEDS: LINEZOLID 600MG TABLET (ZYVOX) PO SCH ×2 (09:13→19:59)
[2022-07-01] MEDS: FERROUS SULFATE 325MG TAB PO SCH (09:13)
[2022-07-01] MEDS: ENOXAPARIN 30MG/0.3ML SYRINGE (J1650 PER 10MG) SC SCH (09:13)
[2022-07-01] MEDS: ASPIRIN 81MG ENTERIC TABLET PO SCH (09:13)
[2022-07-01] MEDS: PANTOPRAZOLE 40MG TAB (PROTONIX) PO SCH ×2 (09:13→20:00)
[2022-07-01] MEDS: METOPROLOL TART 25 MG TABLET PO SCH (09:14)
[2022-07-01] MEDS: DIAPER RELIEF PASTE (DESITIN) 60GM TOP SCH ×2 (09:14→20:00)
[2022-07-01] MEDS: ATORVASTATIN 20 MG TAB PO SCH (20:00)
[2022-07-02] MEDS: SUCRALFATE SUSP 1GM/10ML UD PO SCH ×5 (03:59→22:44)
[2022-07-02 06:06] LABS: HEMATOCRIT 30.3 % (42.0-52.0); HEMOGLOBIN 9.9 g/dl (13.5-17.5); MEAN CORPUSCULAR HEMOGLOBIN 29.5 pg (27.0-33.0); MEAN CORPUSCULAR HGB CONC 32.7 g/dl (32.0-36.5); MEAN CORPUSCULAR VOLUME 90.2 fl (80.0-96.0); PLATELET COUNT, AUTOMATED 376 10^3/uL (150-450); RED BLOOD COUNT 3.36 10^6/uL (4.30-6.10); WHITE BLOOD COUNT 4.9 10^3/uL (4.0-10.0)
[2022-07-02] MEDS: BUDESONIDE 180MCG INHALER (PULMICORT FLEXHALER) INH SCH ×2 (07:15→19:16)
[2022-07-02] MEDS: ASPIRIN 81MG ENTERIC TABLET PO SCH (10:45)
[2022-07-02] MEDS: PANTOPRAZOLE 40MG TAB (PROTONIX) PO SCH ×2 (10:45→20:40)
[2022-07-02] MEDS: LINEZOLID 600MG TABLET (ZYVOX) PO SCH ×2 (10:45→20:40)
[2022-07-02] MEDS: FERROUS SULFATE 325MG TAB PO SCH (10:45)
[2022-07-02] MEDS: METOPROLOL TART 25 MG TABLET PO SCH (10:46)
[2022-07-02] MEDS: DIAPER RELIEF PASTE (DESITIN) 60GM TOP SCH ×2 (10:48→20:41)
[2022-07-02] MEDS: ENOXAPARIN 30MG/0.3ML SYRINGE (J1650 PER 10MG) SC SCH (10:48)
[2022-07-02] MEDS: ATORVASTATIN 20 MG TAB PO SCH (20:40)
[2022-07-03] MEDS: SUCRALFATE SUSP 1GM/10ML UD PO SCH ×4 (03:49→20:46)
[2022-07-03 06:00] VITALS: BP 110/71
[2022-07-03] MEDS: BUDESONIDE 180MCG INHALER (PULMICORT FLEXHALER) INH SCH ×2 (07:31→20:00)
[2022-07-03] MEDS: FERROUS SULFATE 325MG TAB PO SCH (08:39)
[2022-07-03] MEDS: PANTOPRAZOLE 40MG TAB (PROTONIX) PO SCH ×2 (08:39→20:46)
[2022-07-03] MEDS: ASPIRIN 81MG ENTERIC TABLET PO SCH (08:39)
[2022-07-03] MEDS: METOPROLOL TART 25 MG TABLET PO SCH (08:39)
[2022-07-03] MEDS: DIAPER RELIEF PASTE (DESITIN) 60GM TOP SCH ×2 (08:40→20:47)
[2022-07-03] MEDS: ENOXAPARIN 30MG/0.3ML SYRINGE (J1650 PER 10MG) SC SCH (08:40)
[2022-07-03] MEDS: ATORVASTATIN 20 MG TAB PO SCH (20:45)
[2022-07-04] MEDS: SUCRALFATE SUSP 1GM/10ML UD PO SCH ×4 (04:56→21:06)
[2022-07-04 06:00] VITALS: BP 154/85
[2022-07-04] MEDS: BUDESONIDE 180MCG INHALER (PULMICORT FLEXHALER) INH SCH ×2 (06:07→20:43)
[2022-07-04] MEDS: ASPIRIN 81MG ENTERIC TABLET PO SCH (09:18)
[2022-07-04] MEDS: PANTOPRAZOLE 40MG TAB (PROTONIX) PO SCH ×2 (09:19→20:39)
[2022-07-04] MEDS: FERROUS SULFATE 325MG TAB PO SCH (09:19)
[2022-07-04] MEDS: DIAPER RELIEF PASTE (DESITIN) 60GM TOP SCH ×2 (09:19→20:39)
[2022-07-04] MEDS: ENOXAPARIN 30MG/0.3ML SYRINGE (J1650 PER 10MG) SC SCH (09:19)
[2022-07-04] MEDS: METOPROLOL TART 25 MG TABLET PO SCH (09:20)
[2022-07-04] MEDS: SERTRALINE HCL 25 MG TABLET PO SCH (11:41)
[2022-07-04] MEDS: ATORVASTATIN 20 MG TAB PO SCH (20:39)
[2022-07-05] MEDS: SUCRALFATE SUSP 1GM/10ML UD PO SCH ×4 (04:24→22:41)
[2022-07-05 05:50] LABS: HEMOGLOBIN 9.4 g/dl (13.5-17.5); MEAN CORPUSCULAR HGB CONC 32.4 g/dl (32.0-36.5); MEAN CORPUSCULAR VOLUME 89.5 fl (80.0-96.0); PLATELET COUNT, AUTOMATED 339 10^3/uL (150-450); RED BLOOD COUNT 3.24 10^6/uL (4.30-6.10); WHITE BLOOD COUNT 5.8 10^3/uL (4.0-10.0)
[2022-07-05 06:00] VITALS: BP 126/83
[2022-07-05] MEDS: BUDESONIDE 180MCG INHALER (PULMICORT FLEXHALER) INH SCH ×2 (08:21→20:06)
[2022-07-05] MEDS: PANTOPRAZOLE 40MG TAB (PROTONIX) PO SCH ×2 (09:27→19:57)
[2022-07-05] MEDS: ASPIRIN 81MG ENTERIC TABLET PO SCH (09:27)
[2022-07-05] MEDS: SERTRALINE HCL 25 MG TABLET PO SCH (09:27)
[2022-07-05] MEDS: FERROUS SULFATE 325MG TAB PO SCH (09:27)
[2022-07-05] MEDS: ENOXAPARIN 30MG/0.3ML SYRINGE (J1650 PER 10MG) SC SCH (09:28)
[2022-07-05] MEDS: DIAPER RELIEF PASTE (DESITIN) 60GM TOP SCH ×2 (09:29→19:57)
[2022-07-05] MEDS: METOPROLOL TART 25 MG TABLET PO SCH (09:29)
[2022-07-05] MEDS ORDERED: PANT40TA29 PO (12:42)
[2022-07-05] MEDS ORDERED: ZOLO50TA PO (12:42)
[2022-07-05] MEDS ORDERED: METO1TAB87 PO (12:42)
[2022-07-05] MEDS ORDERED: SUCR1TA PO (12:42)
[2022-07-05] MEDS: ATORVASTATIN 20 MG TAB PO SCH (19:57)
[2022-07-06] MEDS: SUCRALFATE SUSP 1GM/10ML UD PO SCH ×2 (04:49→09:23)
[2022-07-06 06:29] VITALS: BP 129/74
[2022-07-06] MEDS: BUDESONIDE 180MCG INHALER (PULMICORT FLEXHALER) INH SCH (07:38)
[2022-07-06 08:15] VITALS: BP 129/75
[2022-07-06 08:36] VITALS: BP 129/75
[2022-07-06] MEDS: METOPROLOL TART 25 MG TABLET PO SCH (08:36)
[2022-07-06] MEDS: ENOXAPARIN 30MG/0.3ML SYRINGE (J1650 PER 10MG) SC SCH (08:37)
[2022-07-06] MEDS: SERTRALINE HCL 25 MG TABLET PO SCH (08:37)
[2022-07-06] MEDS: DIAPER RELIEF PASTE (DESITIN) 60GM TOP SCH (08:38)
[2022-07-06] MEDS: FERROUS SULFATE 325MG TAB PO SCH (09:23)
[2022-07-06] MEDS: ASPIRIN 81MG ENTERIC TABLET PO SCH (09:23)
[2022-07-06] MEDS: PANTOPRAZOLE 40MG TAB (PROTONIX) PO SCH (09:23)
== END 2022-07-06 12:13 | DRG 853 ==
LOC: M ED 08:16 → EDBD 08:16 → EEVIPCON 13:44 → M ED INP 13:44 → ENRESERV 16:36 → M MS5PR 18:38 → M PCU 19:10 → M MSPAV 06-14 23:30
PROVIDERS: ADMIT General Practice; ATTEND Internal Medicine
PROC: 0T9B80Z Drainage of Bladder with Drainage Device, Via Natural or Artificial Opening Endoscopic (ICD-10-PCS; 2022-06-09)
PROC: 30233N1 Transfusion of Nonautologous Red Blood Cells into Peripheral Vein, Percutaneous Approach (ICD-10-PCS; 2022-06-11)
PROC: B246ZZZ Ultrasonography of Right and Left Heart (ICD-10-PCS; 2022-06-13)
PROC: 0V950ZZ Drainage of Scrotum, Open Approach (ICD-10-PCS; principal; 2022-06-19)
PROC: 0VC50ZZ Extirpation of Matter from Scrotum, Open Approach (ICD-10-PCS; 2022-06-19)
DX: A41.59 Other Gram-negative sepsis (principal); E43 Unspecified severe protein-calorie malnutrition; U07.1 COVID-19; Z68.1 Body mass index [BMI] 19.9 or less, adult; N17.9 Acute kidney failure, unspecified; E87.20 Acidosis, unspecified; N39.0 Urinary tract infection, site not specified; N13.1 Hydronephrosis with ureteral stricture, not elsewhere classified; D62 Acute posthemorrhagic anemia; K92.1 Melena; N36.0 Urethral fistula; I47.1 Supraventricular tachycardia; T19.0XXA Foreign body in urethra, initial encounter; Z66 Do not resuscitate; K21.9 Gastro-esophageal reflux disease without esophagitis; E86.0 Dehydration; I10 Essential (primary) hypertension; E78.5 Hyperlipidemia, unspecified; I25.10 Atherosclerotic heart disease of native coronary artery without angina pectoris; M19.90 Unspecified osteoarthritis, unspecified site; F32.A Depression, unspecified; R33.9 Retention of urine, unspecified; J44.9 Chronic obstructive pulmonary disease, unspecified; I48.0 Paroxysmal atrial fibrillation; R13.10 Dysphagia, unspecified; K22.2 Esophageal obstruction; N49.2 Inflammatory disorders of scrotum; I49.3 Ventricular premature depolarization; N43.3 Hydrocele, unspecified; R62.7 Adult failure to thrive; R63.4 Abnormal weight loss; M47.9 Spondylosis, unspecified; R15.9 Full incontinence of feces; N40.1 Benign prostatic hyperplasia with lower urinary tract symptoms; N32.3 Diverticulum of bladder; Z87.891 Personal history of nicotine dependence; Z95.5 Presence of coronary angioplasty implant and graft; Z79.899 Other long term (current) drug therapy; Z79.82 Long term (current) use of aspirin